=== PATIENT | female | born 1995 | race Hispanic/Latino ===

== ENCOUNTER 2018-02-27 14:04 | Emergency (ER) | payer OTHER ==
[2018-02-27] MEDS ORDERED: LIDOCAINE 1% W/EPI 1:100,000 MDV 50 ML VIAL ONE (14:56)
[2018-02-27] MEDS ORDERED: BUPIVACAINE 0.5% PF 10 ML VIAL ONE (14:56)
--- NOTE | 2018-02-27 16:09 | EDPHYS ---
Physician Documentation [facility] Name: Dav Munoz Age: 23 yrs Sex: Female : 1995 Arrival Date: 02/27/2018 Time: 14:07 Bed 27 Private MD: ED Physician Wolfgang Foster HPI: 02/27 14:20 This 23 yrs old Female presents to ER via Ambulatory with complaints of cp Abscess. 14:20 The patient presents with an abscess of the right groin. cp 14:20 Onset: The symptoms/episode began/occurred 2 day(s) ago. cp 14:20 Associated signs and symptoms: Pertinent negatives: discharge, drainage, fever. cp Severity of symptoms: in the emergency department the symptoms are unchanged. 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 - Social history:: Smoking status: Patient/guardian denies using tobacco, never smoked. ROS: 14:25 Constitutional: Negative for body aches, chills, fever, poor PO intake. cp 14:25 Eyes: Negative for injury, pain, redness, and discharge, ENT: Negative for injury, cp pain, and discharge. 14:25 Cardiovascular: Negative for chest pain, palpitations. 14:25 Respiratory: Negative for cough, shortness of breath, wheezing. 14:25 Abdomen/GI: Negative for abdominal pain, nausea, vomiting, and diarrhea. 14:25 : Negative for urinary symptoms, vaginal bleeding, vaginal discharge. 14:25 Skin: Positive for abscess, of the right groin. 14:25 All other systems are negative. Exam: 15:30 Head/Face: Normocephalic, atraumatic. cp 15:30 Constitutional: The patient appears in no acute distress, alert, awake, non-toxic, well developed, well nourished. 15:30 Eyes: Periorbital structures: appear normal, Conjunctiva: normal, no exudate, no injection, Lids and lashes: appear normal, bilaterally. 15:30 ENT: External ear(s): are unremarkable, Nose: is normal, Mouth: is normal, Posterior pharynx: is normal, airway is patent, no erythema, no exudate. 15:30 Chest/axilla: Inspection: normal. 15:30 Cardiovascular: Rate: normal, Rhythm: regular. 15:30 Respiratory: the patient does not display signs of respiratory distress, Respirations: normal. 15:30 Abdomen/GI: Inspection: gravid appearance, is noted, Bowel sounds: active, all quadrants, Palpation: abdomen is soft and non-tender, in all quadrants. 15:30 Skin: abscess, that is small, of the right groin, with minimal surrounding erythema. Vital Signs: 14:10 BP 110 / 76; Pulse 97; Resp 18; Temp 97.4(TE); Pulse Ox 100% on R/A; Weight 78.02 kg; hj Height 5 ft. 0 in. (152.40 cm); Pain 8/10; 15:23 BP 107 / 73; Pulse 72; Resp 18; Pulse Ox 100% ; tl3 16:03 BP 109 / 73; Pulse 67; Resp 18; Pulse Ox 100% on R/A; tl3 14:10 Body Mass Index 33.59 (78.02 kg, 152.40 cm) Procedures: 16:05 I \T\ D: Incision and drainage was performed for an abscess of the right groin Prepped cp with Betadine, Anesthetized with 3 ml's 1% Lidocaine w/ Epi. Incised with #11 blade. Drained small amount purulent fluid. Packed with iodoform gauze, Dressing: sterile 4x4 gauze, the patient tolerated the procedure well. MDM: 14:12 Patient medically screened. 16:00 Differential diagnosis: abscess, cellulitis, insect bite. 16:05 Data reviewed: vital signs, nurses notes. 16:07 Counseling: I had a detailed discussion with the patient and/or guardian regarding: the historical points, exam findings, and any diagnostic results supporting the discharge/admit diagnosis, to return to the emergency department if symptoms worsen or persist or if there are any questions or concerns that arise at home. 16:07 Response to treatment: the patient's symptoms have markedly improved after treatment, and as a result, I will discharge patient. 02/27 14:22 Order name: Wound Culture 02/27 14:22 Order name: I\T\D Setup; Complete Time: 14:32 cp 02/27 15:39 Order name: FHT's cp Administered Medications: No medications were administered Disposition: 02/28 10:25 Co-signature as Attending Physician, Wolfgang Foster MD I agree with the assessment and [facility] plan of care. Disposition: 02/27/18 16:08 Discharged to Home. Impression: Cutaneous abscess of groin - Right. - Condition is Stable. - Discharge Instructions: Abscess, Incision and Drainage. - Prescriptions for Clindamycin HCl 300 mg Oral Capsule - take 1 capsule by ORAL route every 6 hours for 7 days; 28 capsule. - Medication Reconciliation Form, Thank You Letter, Antibiotic Education, Prescription Opioid Use form. - Follow up: Private Physician; When: 48 Hours; Reason: Wound Recheck. - Problem is new. - Symptoms have improved. Signatures: Dispatcher [employer] Wolfgang Alva MD MD cha Joaquin, Henry, RN RN Wolfgang Bright PA PA cp Lowrey, Tammy, RN RN tl3 Corrections: (The following items were deleted from the chart) 02/27 21:02/26 14:25 Constitutional: Negative for body aches, chills, fever, poor PO intake, cp cp 02/27 21:02/26 14:25 Eyes: Negative for injury, pain, redness, and discharge, cp cp 02/27 21:02/26 14:25 Cardiovascular: Negative for chest pain, palpitations, cp cp 02/27 21:02/26 14:25 Respiratory: Negative for cough, shortness of breath, wheezing, cp cp 02/27 21:02/26 14:25 Abdomen/GI: Negative for abdominal pain, nausea, vomiting, and diarrhea, cp cp 02/27 21:02/26 14:25 : Negative for urinary symptoms, vaginal bleeding, vaginal discharge, cp cp 02/27 21:02/26 14:25 Skin: Positive for abscess, of the right groin, cp cp 02/27 21:02/26 14:25 All other systems are negative, cp cp
--- NOTE | 2018-02-27 16:09 | ER ---
Nurse's Notes [facility] Name: Dav Munoz Age: 23 yrs Sex: Female : 1995 Arrival Date: 02/27/2018 Time: 14:07 Bed 27 Private MD: Diagnosis: Cutaneous abscess of groin-Right Presentation: 02/27 14:08 Presenting complaint: Patient states: 2 days ago, i noticed a bump or abscess on my R hj inner thigh; its hard, denies fever and chills; LMP- 03/2017; 39 weeks ;. Transition of care: patient was not received from another setting of care. Onset of symptoms was February 27, 2018. Care prior to arrival: None. 14:08 Method Of Arrival: Ambulatory 14:08 Acuity: KYRA 4 hj Triage Assessment: 14:10 General: Appears in no apparent distress. uncomfortable, Behavior is calm, cooperative, hj appropriate for age. Pain: Complains of pain in right upper thigh Pain currently is 8 out of 10 on a pain scale. 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 - Social history:: Smoking status: Patient/guardian denies using tobacco, never smoked. Screenin:29 Abuse screen: Denies threats or abuse. Nutritional screening: No deficits noted. tl3 Tuberculosis screening: No symptoms or risk factors identified. Fall Risk None identified. Assessment: 14:29 General: Appears in no apparent distress. comfortable, well groomed, well developed, tl3 well nourished, Behavior is calm, cooperative, appropriate for age. Pain: Complains of pain in right upper thigh. Neuro: Level of Consciousness is awake, alert, obeys commands, Oriented to person, place, time, situation, Appropriate for age. Cardiovascular: No deficits noted. Heart tones S1 S2 present. Respiratory: No deficits noted. Airway is patent Trachea midline Respiratory effort is even, unlabored, Respiratory pattern is regular, symmetrical, Breath sounds are clear bilaterally. GI: No deficits noted. Abdomen is round. : No signs and/or symptoms were reported regarding the genitourinary system. EENT: No signs and/or symptoms were reported regarding the EENT system. Derm: No signs and/or symptoms reported regarding the dermatologic system. Musculoskeletal: No signs and/or symptoms reported regarding the musculoskeletal system. 15:23 Reassessment: Patient appears in no apparent distress at this time. No changes from tl3 previously documented assessment. Patient and/or family updated on plan of care and expected duration. Pain level reassessed. Patient is alert, oriented x 3, equal unlabored respirations, skin warm/dry/pink. pt requested more water and bed repositioned, Miki Bright at bedside discussing POC. 16:03 Reassessment: Patient appears in no apparent distress at this time. No changes from tl3 previously documented assessment. Patient and/or family updated on plan of care and expected duration. Pain level reassessed. Patient is alert, oriented x 3, equal unlabored respirations, skin warm/dry/pink. I\T\D complete, wound dressed. Vital Signs: 14:10 BP 110 / 76; Pulse 97; Resp 18; Temp 97.4(TE); Pulse Ox 100% on R/A; Weight 78.02 kg; hj Height 5 ft. 0 in. (152.40 cm); Pain 8/10; 15:23 BP 107 / 73; Pulse 72; Resp 18; Pulse Ox 100% ; tl3 16:03 BP 109 / 73; Pulse 67; Resp 18; Pulse Ox 100% on R/A; tl3 14:10 Body Mass Index 33.59 (78.02 kg, 152.40 cm) Vitals: 16:03 Heart Tones 146. tl3 ED Course: 14:07 Patient arrived in ED. rg4 14:09 Triage completed. hj 14:10 Arm band placed on left wrist. hj 14:12 Wolfgang Bright PA is PHCP. cp 14:12 Wolfgang Foster MD is Attending Physician. cp 14:21 Pascale Mai, UMAIR is Primary Nurse. tl3 14:29 Patient has correct armband on for positive identification. Placed in gown. Bed in low tl3 position. Call light in reach. Side rails up X 1. Door closed. Lights dimmed. Warm blanket given. PO fluids given. 14:29 Assist provider with I \T\ D: of an abscess on right upper thigh. tl3 14:37 No apparent distress. Awaiting ED provider evaluation. tl3 15:23 PO fluids given. Head of bed lowered. tl3 16:17 Patient did not have IV access during this emergency room visit. tl3 Administered Medications: No medications were administered Outcome: 16:05 Discharged to home tl3 16:05 Condition: good 16:05 Discharge instructions given to patient, Instructed on discharge instructions, follow up and referral plans. medication usage, Demonstrated understanding of instructions, follow-up care, medications, wound care, Prescriptions given X 1. 16:08 Discharge ordered by . mode 16:26 Patient left the ED. tl3 Addendum: 03/04/2018 07:46 Addendum: Culture Results: Positive wound culture. No further action required. i w Signatures: Lorraine Carolina, RN RN iw Bubba Haines RN RN Wolfgang Plascencia PA PA cp Garcia, Rubi rg4 Pascale Mai, RN RN tl3 Corrections: (The following items were deleted from the chart) 04 14:12 14:10 Pulse 97bpm; Resp 18bpm; Pulse Ox 100% RA; Temp 97.4F Temporal; 78.02 kg; Height hj 5 ft. 0 in.; BMI: 33.5; Pain 8/10; hj
== END 2018-02-27 16:26 | disposition home or self-care (01) ==
LOC: ER 14:04
PROC: 0J9C0ZZ Drainage of Pelvic Region Subcutaneous Tissue and Fascia, Open Approach (ICD-10-PCS; principal; 2018-02-27)
DX: L02.214 Cutaneous abscess of groin (principal); Z3A.00 Weeks of gestation of pregnancy not specified
CPT/HCPCS: 87070; 87077; 87186; 87205; 99283

== ENCOUNTER 2020-03-06 05:58 | Emergency (ER) | payer OTHER ==
--- OUTSIDE RECORDS SUMMARY | 2020-03-06 06:00 | XMS REPORT ---
:1995 Author Organization [facility] t Address [address] [place] [address] [address] [place] [address] Care Team Providers Name Role Phone Unavailable Unavailable Unavailable Problems This patient has no known problems. Allergies, Adverse Reactions, Alerts This patient has no known allergies or adverse reactions. Medications This patient has no known medications.
--- OUTSIDE RECORDS SUMMARY | 2020-03-06 06:01 | XMS REPORT | Summary of Care ---
:1995 Author Organization [facility] Address [address] [phone] Care Team Providers Name Role Phone Eva Hutton MD Primary Care Provider Unavailable Encounter Details Date Type Department Care Team Description 06/29/2019 Orders Only [facility] Doctor Unassigned, No [address] [facility] Name [address] [id number] [address] [place] [address] Allergies No Known Allergiesdocumented as of this encounter (statuses as of 07/03/2019) Medications Medication Sig Dispensed Refills Start Date End Date Status VIT Take 1 tablet by 0 Active CALC,IRON,FOLIC mouth. ( #2 ORAL) ferrous sulfate 325 mg Take 1 tablet by 60 tablet 5 02/11/2018 Active (65 mg iron) mouth 2 (two) tabletIndications: times daily with Anemia of mother in meals. , antepartum ibuprofen 800 mg Take 1 tablet by 20 tablet 0 08/22/2018 Active tablet mouth every 6 (six) hours as needed for Pain (scale 1-3) or Pain (scale 4-6). HYDROcodone-acetaminop Take 1 tablet by 5 tablet 0 08/22/2018 Active hen 5-325 mg tablet mouth every 6 (six) hours as needed for Pain (scale 7-10). documented as of this encounter (statuses as of 07/03/2019) Active Problems Problem Noted Date S/P laparoscopy 08/22/2018 Nexplanon removal 08/22/2018 control counseling 08/04/[address] 04/09/2018 Anemia of mother in , condition Normal labor 03/02/2018 Anemia complicating , third trimester 018 Nausea and vomiting 01/06/2018 Obesity 01/02/2016 documented as of this encounter (statuses as of 07/03/2019) Resolved Problems Problem Noted Date Resolved Date Liveborn infant, of [place] , born in hospital by 03/03/2018 04/01/2018 vaginal delivery 38 weeks gestation of 03/02/2018 04/01/20 18 Not immune to rubella 03/02/2018 04/01/2018 Meconium in amniotic fluid 03/02/2018 04/01/2018 High-risk , third trimester 02/19/201806/2018 Narciso Davis contractions 01/06/2018 04/01/2018 31 weeks gestation of 01/06/2018 03/02/20 18 Uterine size-date discrepancy in third trimester 12/27/2017 04/01/2018 29 weeks gestation of 12/21/2017 03/02/20 18 Vaginal discharge during in third trimester 201704/01/2018 Trichomonal vaginitis during in third trimester 04/01/2018 UTI in , antepartum, third trimester 12/21/2017 04/01/2018 Other general counseling and advice for contraceptive 201503/02/2018 management Well woman exam 01/02/2016 03/02/2018 Tobacco use disorder 01/02/2016 12/27/2017 documented as of this encounter (statuses as of 07/03/2019) Immunizations Name Administration Dates Next Due HPV 04/19/2008 Influenza Virus Vaccine Quad IM Multi-dose 6+ MO 12/27/2017 MMR 03/03/2018 Td 03/03/2018 Tdap 04/25/2014 documented as of this encounter Social History Tobacco Use Types Packs/Day Years Used Date Current Some Day Smoker Cigarettes 3 Quit : 01/20/2017 Smokeless Tobacco: Never Used Alcohol Use Drinks/Week oz/Week Comments No 0 Standard drinks or equivalent 0.0 Sex Assigned at Date Recorded Not on file Job Start Date Occupation Industry Not on file Not on file Not on file Travel History Travel Start Travel End No recent travel history available. documented as of this encounter Last Filed Vital Signs Not on filedocumented in this encounter Plan of Treatment Health Maintenance Due Date Last Done Comments PNEUMOCOCCAL 0-64 YEARS 2003 COMBINED SERIES (1 of 1 - PPSV23) MENINGOCOCCAL B VACCINES (1 2007 of 2 - Risk Bexsero 2-dose series) HPV VACCINES (2 - Female 10/20/2008 04/19/2008 2-dose series) CHLAMYDIA SCREENING 01/22/2019 01/22/2018, 12/21/2017, 04/19/2017, Additional history exists PAP SMEAR 04/01/2019 04/01/2018 INFLUENZA VACCINE 07/26/2019 12/27/2017 DTaP,Tdap,and Td Vaccines (3 03/03/2028 03/03/2018, 014 - Td) MENINGOCOCCAL VACCINE Aged Out No longer eligible based on patient 's age to complete this topic documented as of this encounter Procedures Procedure Name Priority Date/Time Associated Diagnosis Comme nts AUTHORIZATION FOR RELEASE Routine 06/29/2019 12:01 AM OF PHI CDT documented in this encounter Results Not on filedocumented in this encounter Insurance Payer Benefit Plan / Group Subscriber ID Effective Dates Phone Address Type AETNA AETNA O [id number] 2018-Present [place] documented as of this encounter
[2020-03-06] MEDS ORDERED: KETOROLAC 30 MG/ML INJ ONE (07:18)
--- NOTE | 2020-03-06 07:25 | RAD REPORT ---
EXAM DESCRIPTION: CT - [facility] Protocol - 03/06/2020 7:00 am CLINICAL HISTORY: Abdominal pain. COMPARISON: None. TECHNIQUE: Computed axial tomography of the abdomen pelvis was obtained without oral or IV contrast. Lack of IV and oral contrast limits evaluation of solid organs, bowel, and vessels. Coronal reformat chris images were obtained and reviewed. All CT scans are performed using dose optimization technique as appropriate and may include automated exposure control or mA/KV adjustment according to patient size. FINDINGS: A renal calculus is not seen. An ureteral calculus is not noted. A bladder calculus is not present. The liver, spleen, pancreas and adrenals appear grossly normal There is no evidence of diverticulitis. The appendix appears normal IUD in place. Small amount of free fluid. No adnexal mass seen. IMPRESSION: Negative for a genitourinary calculus Small amount of free fluid within the pelvis
--- NOTE | 2020-03-06 07:36 | ER ---
Nurse's Notes [facility] Name: Dav Munoz Age: 25 yrs Sex: Female : 1995 Arrival Date: 03/06/2020 Time: 06:02 Bed 7 Private MD: Diagnosis: Abdominal and pelvic pain Presentation: 03/06 06:00 Chief complaint: Patient states: low pelvic pain for a couple days, worse this morning; lp1 States having Mirena inserted by [employer] a couple weeks ago; Denies any fever, N/D, vaginal discharge. 06:00 Coronavirus screen: Proceed with normal triage. Ebola Screen: No symptoms or risks lp1 identified at this time. Initial Sepsis Screen: Does the patient meet any 2 criteria? No. Patient's initial sepsis screen is negative. Does the patient have a suspected source of infection? No. Patient's initial sepsis screen is negative. Risk Assessment: Do you want to hurt yourself or someone else? Patient reports no desire to harm self or others. Onset of symptoms was March 06, 2020. 06:00 Method Of Arrival: Ambulatory lp1 06:00 Acuity: KYRA 3 lp1 06:24 Coronavirus screen: Proceed with normal triage. Ebola Screen: No symptoms or risks ea identified at this time. 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 - Social history:: Smoking status: Patient denies any tobacco usage or history of. Screenin:24 Abuse screen: Denies threats or abuse. Nutritional screening: No deficits noted. ea Tuberculosis screening: No symptoms or risk factors identified. Fall Risk None identified. Assessment: 06:22 General: Appears in no apparent distress. Behavior is calm, cooperative, appropriate ea for age. Pain: Complains of pain in abdomen. Neuro: Level of Consciousness is awake, alert, obeys commands, Oriented to person, place, time. Cardiovascular: Patient's skin is warm and dry. Respiratory: Airway is patent Respiratory effort is even, unlabored, Respiratory pattern is regular, symmetrical. 07:18 Reassessment: Patient appears in no apparent distress at this time. Patient and/or em family updated on plan of care and expected duration. Pain level reassessed. Patient is alert, oriented x 3, equal unlabored respirations, skin warm/dry/pink. rates pain 6/10. Vital Signs: 06:00 BP 110 / 62; Pulse 74; Resp 16; Temp 98.2(O); Pulse Ox 97% on R/A; Weight 77.11 kg (R); lp1 Height 5 ft. 0 in. (152.40 cm); Pain 5/10; 07:19 BP 115 / 69; Pulse 79; Resp 18; Pulse Ox 100% on R/A; Pain 9/10; em 06:00 Body Mass Index 33.20 (77.11 kg, 152.40 cm) lp1 ED Course: 06:02 Patient arrived in ED. ag3 06:03 [facility]zma Sun [facility]C [facility] kb 06:03 Wolfgang Foster MD is Attending Physician. kb 06:22 Melany Julian, RN is Primary Nurse. ea 06:25 Triage completed. lp1 06:25 Arm band placed on. lp1 06:25 Patient has correct armband on for positive identification. Bed in low position. Call ea light in reach. 07:00 CT [facility] Protocol In Process Unspecified. EDMS 07:46 No provider procedures requiring assistance completed. Patient did not have IV access em during this emergency room visit. Administered Medications: 07:17 Drug: TORadol 30 mg Route: IM; Site: right deltoid; em 07:46 Follow up: Response: No adverse reaction; Marked relief of symptoms; Pain is decreased em Outcome: 07:35 Discharge ordered by . kb 07:46 Discharged to home ambulatory. em 07:46 Condition: good 07:46 Discharge instructions given to patient, Instructed on discharge instructions, follow up and referral plans. medication usage, safe sex practices, Demonstrated understanding of instructions, follow-up care, medications, Prescriptions given X 1. 07:46 Patient left the ED. em Signatures: Dispatcher [employer] EDMT Uzma Sun FNP-C FNP-Ckb Munoz, Edgar, RN RN em Pena, Laura, RN RN [facility] Melany Julian, RN RN ea Moffett, Kaitlin ag3
--- NOTE | 2020-03-06 07:36 | EDPHYS ---
Physician Documentation [facility] Name: Dav Munoz Age: 25 yrs Sex: Female : 1995 Arrival Date: 03/06/2020 Time: 06:02 Bed 7 Private MD: ED Physician Wolfgang Foster HPI: 03/06 06:24 This 25 yrs old Female presents to ER via Ambulatory with complaints of kb Abdominal Pain. 06:24 The patient presents with abdominal pain in the lower abdomen. Onset: The kb symptoms/episode began/occurred 2 week(s) ago. The symptoms do not radiate. Associated signs and symptoms: none. The symptoms are described as crampy. Modifying factors: The symptoms are alleviated by nothing, the symptoms are aggravated by nothing. Severity of pain: At its worst the pain was moderate in the emergency department the pain is unchanged. The patient has not experienced similar symptoms in the past. The patient has been recently seen by a physician:. Pt reports pelvic pain since having the mirena placed 2 weeks ago. States she pain was "normal" at first, but continued and has gotten worse. Reports it feels like pressure. . 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 - Social history:: Smoking status: Patient denies any tobacco usage or history of. ROS: 06:23 Constitutional: Negative for fever, chills, and weight loss, ENT: Negative for injury, kb pain, and discharge, Neck: Negative for injury, pain, and swelling, Cardiovascular: Negative for chest pain, palpitations, and edema, Respiratory: Negative for shortness of breath, cough, wheezing, and pleuritic chest pain, Back: Negative for injury and pain, MS/Extremity: Negative for injury and deformity, Skin: Negative for injury, rash, and discoloration, Neuro: Negative for headache, weakness, numbness, tingling, and seizure. 06:23 Abdomen/GI: Positive for abdominal pain, Negative for nausea, vomiting, and diarrhea, constipation. Exam: 06:23 Constitutional: This is a well developed, well nourished patient who is awake, alert, kb and in no acute distress. Head/Face: Normocephalic, atraumatic. Neck: Trachea midline, no thyromegaly or masses palpated, and no cervical lymphadenopathy. Supple, full range of motion without nuchal rigidity, or vertebral point tenderness. No Meningismus. Chest/axilla: Normal chest wall appearance and motion. Nontender with no deformity. No lesions are appreciated. Cardiovascular: Regular rate and rhythm with a normal S1 and S2. No gallops, murmurs, or rubs. Normal PMI, no JVD. No pulse deficits. Respiratory: Lungs have equal breath sounds bilaterally, clear to auscultation and percussion. No rales, rhonchi or wheezes noted. No increased work of breathing, no retractions or nasal flaring. Skin: Warm, dry with normal turgor. Normal color with no rashes, no lesions, and no evidence of cellulitis. MS/ Extremity: Pulses equal, no cyanosis. Neurovascular intact. Full, normal range of motion. Neuro: Awake and alert, GCS 15, oriented to person, place, time, and situation. Cranial nerves II-XII grossly intact. Motor strength 5/5 in all extremities. Sensory grossly intact. Cerebellar exam normal. Normal gait. 06:23 Abdomen/GI: Inspection: abdomen appears normal, Bowel sounds: normal, in all quadrants, Palpation: soft, in all quadrants, mild abdominal tenderness, in the right lower quadrant and left lower quadrant, moderate abdominal tenderness, in the suprapubic area. Vital Signs: 06:00 BP 110 / 62; Pulse 74; Resp 16; Temp 98.2(O); Pulse Ox 97% on R/A; Weight 77.11 kg (R); lp1 Height 5 ft. 0 in. (152.40 cm); Pain 5/10; 07:19 BP 115 / 69; Pulse 79; Resp 18; Pulse Ox 100% on R/A; Pain 9/10; em 06:00 Body Mass Index 33.20 (77.11 kg, 152.40 cm) lp1 MDM: 06:03 Patient medically screened. kb 06:22 Data reviewed: vital signs, nurses notes. Data interpreted: Pulse oximetry: on room air kb is 100 %. Interpretation: normal. 07:34 Counseling: I had a detailed discussion with the patient and/or guardian regarding: the kb historical points, exam findings, and any diagnostic results supporting the discharge/admit diagnosis, lab results, radiology results, the need for outpatient follow up, an OB/Gyne specialist, to return to the emergency department if symptoms worsen or persist or if there are any questions or concerns that arise at home. ED course: Pt will follow up with Dr Arambula this week.. 03/06 06:19 Order name: Urine Dipstick--Ancillary (enter results) 2 03/06 06:19 Order name: Urine --Ancillary (enter results) 2 03/06 06:09 Order name: Urine Dipstick-Ancillary (obtain specimen); Complete Time: 06:19 kb 03/06 06:09 Order name: CT Stone Protocol; Complete Time: 07:31 kb Administered Medications: 07:17 Drug: TORadol 30 mg Route: IM; Site: right deltoid; em 07:46 Follow up: Response: No adverse reaction; Marked relief of symptoms; Pain is decreased em Disposition: 03/07 07:37 Co-signature as Attending Physician, Wolfgang Foster MD I agree with the assessment and darrin plan of care. Disposition: 03/06/20 07:35 Discharged to Home. Impression: Abdominal and pelvic pain. - Condition is Stable. - Discharge Instructions: Pelvic Pain, Female, [id number], Abdominal Pain, Adult, [id number]. - Prescriptions for Diclofenac Sodium 75 mg Oral Tablet, Delayed Release (E.C.) - take 1 tablet by ORAL route 2 times per day As needed; 30 tablet. - Medication Reconciliation Form, Thank You Letter, Antibiotic Education, Prescription Opioid Use form. - Follow up: Emergency Department; When: As needed; Reason: Worsening of condition. Follow up: Private Physician; When: 2 - 3 days; Reason: Recheck today's complaints, Continuance of care, Re-evaluation by your physician. Signatures: Dispatcher [employer] Uzma Gonzalez, CYBER INTELLIGENCE ANALYST-C Wolfgang Quintero MD MD cha Munoz, Edgar, RN RN em Gena Vaz RN RN lp1 Corrections: (The following items were deleted from the chart) 03/06 07:46 07:35 03/06/2020 07:35 Discharged to Home. Impression: Abdominal and pelvic pain. em Condition is Stable. Forms are Medication Reconciliation Form, Thank You Letter, Antibiotic Education, Prescription Opioid Use. Follow up: Emergency Department; When: As needed; Reason: Worsening of condition. Follow up: Private Physician; When: 2 - 3 days; Reason: Recheck today's complaints, Continuance of care, Re-evaluation by your physician. kb
[2020-03-06 07:55] VITALS: TEMP 98.2
[2020-03-06 07:56] VITALS: BP 115/69; O2SAT 100
[2020-03-06 08:46] LABS: Urine Blood NEGATIVE (NEG); Urine Glucose NEGATIVE (NEG); Urine Protein NEGATIVE (NEG); Urine Specific Gravity >1.030 (1.005-1.030)
== END 2020-03-06 07:46 | disposition home or self-care (01) ==
LOC: ER 05:58
DX: R10.31 Right lower quadrant pain (principal); R10.32 Left lower quadrant pain; R10.2 Pelvic and perineal pain
CPT/HCPCS: 74176; 76377; 81003; 81025; 96372; 99283

== ENCOUNTER 2021-06-19 07:12 | Emergency (ER) | payer SELFPAY ==
--- OUTSIDE RECORDS SUMMARY | 2021-06-19 07:15 | XMS REPORT | Continuity of Care Document ---
:1995 Author Organization [facility] t Address [address] [place] [address] Care Team Providers Name Role Phone Doctor Unassigned, Name Attending Clinician Unavailable Problems This patient has no known problems. Allergies, Adverse Reactions, Alerts This patient has no known allergies or adverse reactions. Medications This patient has no known medications. Procedures This patient has no known procedures. Encounters Start End Encounter Admission Attending Care Care Encounter Source Date/Time Date/Time Type Type Clinicians Facility Department ID 2019-06-29 2019-06-29 Orders Doctor ALMAGUER [id number] 00:00:00 00:00:00 Only UnassignedLORNA [id number] Eitzen [facility] [id number] Results This patient has no known results.
[2021-06-19] MEDS ORDERED: IBUPROFEN 400 MG TAB ONE (09:11)
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
[2021-06-21 04:53] VITALS: TEMP 97.6
[2021-06-21 04:55] VITALS: BP 134/98; O2SAT 100
== END 2021-06-19 08:51 | disposition home or self-care (01) ==
LOC: ER 07:12 → EEVIPCON 07:12 → ER 08:51
DX: S09.90XA Unspecified injury of head, initial encounter (principal); S20.229A Contusion of unspecified back wall of thorax, initial encounter; Y04.8XXA Assault by other bodily force, initial encounter; Y92.009 Unspecified place in unspecified non-institutional (private) residence as the place of occurrence of the external cause

== ENCOUNTER 2025-01-25 01:08 | Emergency (ER) | payer OTHER, SELFPAY ==
--- OUTSIDE RECORDS SUMMARY | 2025-01-25 01:16 | XMS REPORT | Continuity of Care Document ---
Author Name Unknown Address [address] [place] [address] [facility] [address] [place] [address] Care Team Providers Care Grants Director Name Role Phone Carli Nico Primary Care Physician Bruce Read Attending Clinician Unavailable DAVID CASTANEDA Attending Clinician Unavailable More Galo Attending Clinician UnavailNEREYDA Miner Attending Clinician UnavailTREY Castro Attending Clinician Unavailable FERNANDO CLAROS Attending Clinician Unavailab SAMY Solomon Attending Clinician Unavailab SHAQUILLE Oconnell Attending Clinician Unavailable CARINA DRUMMOND-SON Attending Clinician Unavailable NT90 Attending Clinician Unavailable RONY FIGUEREDO Attending Clinician Unavailable MITCH AGUILAR Attending Clinician Unavailable BÁRBARA CORONA Attending Clinician Unavailable CHRIS FONTENOT Attending Clinician Unavailable DIPIKA ALMAGUER Attending Clinician Unavailable LYDIA ESTRADA Attending Clinician Unavailable SANDRINE FRANKLIN Attending Clinician Unavailable LAB45 Attending Clinician Unavailable LAB90 Attending Clinician Unavailable JARRELL RAMOS Attending Clinician Unavailable [email or web address] Attending Clinician UnavailLISSETT Rizzo Attending Clinician Ayse vailable Pob, [facility] Main Attending Clinician UnavailAlma Stevens MD Attending Clinician [phone] ALMA DUENAS Attending Clinician Unavailsebastián e Doctor Unassigned, Rake Attending Clinician U navailable RADIOLOGY Attending Clinician Unavailable SUE SORTO Attending Clinician Un available [email or web address] Admitting Clinician Unavaila emerita Payers Payer Name Policy Type Policy Number Effective Date Expirati on Date Source 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 [id number] 2024 00:00:00 [employer] GENERIC [id number] 2023 00:00:00 [place] [address] [id number] [place] [address] [id number] 2021 00:00:00 [facility] [id number] [facility] Problems Condition Name Condition Details Condition Category Status Onset Date Resolution Date Last Treatment Date Treating Clinician Comments Source S/P laparoscop y S/P laparoscop y Disease Active 08-22 00:00: 00 [facility] Nexplanon removal Nexplanon removal Disease Active 08-22 00:00: 00 [facility] Nexplanon removal Nexplanon removal Disease Active 08-22 00:00: 00 [facility] control counseling control counseling Disease Active 08-04 00:00: 00 [facility] control counseling control counseling Disease Active 08-04 00:00: 00 [facility] Nexplanon in place Nexplanon in place Disease Active 04-09 00:00: 00 [facility] Anemia of mother in , condition Anemia of mother in , condition Disease Active 04-01 00:00: 00 [facility] Anemia of mother in , condition Anemia of mother in , condition Disease Active 04-01 00:00: 00 [facility] Normal labor Normal labor Disease Active 03-02 00:00: 00 [facility] Anemia complicati ng , third trimester Anemia complicati ng , third trimester Disease Active 02-19 00:00: 00 [facility] Nausea and vomiting Nausea and vomiting Disease Active 01-06 00:00: 00 [facility] Obesity Obesity Disease Active 01-02 00:00: 00 [facility] [id number] Attention deficit hyperactiv ity disorder (ADHD), combined type Problem [facility] [id number] Smoker Problem [facility] Allergic rhinitis Allergic rhinitis, unspecifie d seasonalit y, unspecifie d trigger Problem [facility] [id number] Low HDL (under 40) Problem [facility] [id number] Atypical squamous cells of undetermin ed significan ce on cytologic smear of cervix (ASC-US) Problem [facility] [id number] Cervical high risk human papillomav irus (HPV) DNA test positive Problem [facility] [id number] Medical history non-contri butory Problem [facility] [id number] Menorrhagi a with regular cycle Problem [facility] [id number] Unable to concentrat e Problem [facility] Liveborn infant, of hollins , born in hospital by vaginal delivery Liveborn , of hollins , born in hospital by vaginal delivery Disease Resolve d 03-03 00:00: 00 2018-04-01 00:00:00 2018-04-01 09:27:38 [facility] 38 weeks gestation of 38 weeks gestation of Disease Resolve d 03-02 00:00: 00 2018-04-01 00:00:00 2018-04-01 09:27:38 [facility] Not immune to rubella Not immune to rubella Disease Resolve d 2017-0 4-08 00:00: 00 2018-04-01 00:00:00 2018-04-01 09:27:38 [facility] Meconium in amniotic fluid Meconium in amniotic fluid Disease Resolve d 2017-0 4-08 00:00: 00 2018-04-01 00:00:00 2018-04-01 09:27:38 [facility] High-risk , third trimester High-risk , third trimester Disease Resolve d 2017-0 3-28 00:00: 00 2018-04-01 00:00:00 2018-04-01 12:29:39 [facility] Hemphill Davis contractio ns Hemphill Davis contractio ns Disease Resolve d 2017-0 2-12 00:00: 00 2018-04-01 00:00:00 2018-04-01 12:29:27 [facility] Uterine size-date discrepanc y in third trimester Uterine size-date discrepanc y in third trimester Disease Resolve d 2017-0 2-02 00:00: 00 2018-04-01 00:00:00 2018-04-01 12:29:23 [facility] Vaginal discharge during in third trimester Vaginal discharge during in third trimester Disease Resolve d 2017-0 1-27 00:00: 00 2018-04-01 00:00:00 2018-04-01 09:27:38 [facility] Trichomona l vaginitis during in third trimester Trichomona l vaginitis during in third trimester Disease Resolve d 2017-0 1-27 00:00: 00 2018-04-01 00:00:00 2018-04-01 09:27:38 [facility] UTI in , antepartum , third trimester UTI in , antepartum , third trimester Disease Resolve d 2017-0 1-27 00:00: 00 2018-04-01 00:00:00 2018-04-01 09:27:38 [facility] 31 weeks gestation of 31 weeks gestation of Disease Resolve d 2017-0 2-12 00:00: 00 2018-03-02 00:00:00 2018-03-02 12:13:54 [facility] 29 weeks gestation of 29 weeks gestation of Disease Resolve d 1-27 00:00: 00 2018-03-02 00:00:00 2018-03-02 12:13:43 [facility] Well woman exam Well woman exam Disease Resolve d 01-02 00:00: 00 2018-03-02 00:00:00 2018-03-02 12:13:37 [facility] Tobacco use disorder Tobacco use disorder Disease Resolve d 01-02 00:00: 00 2017-12-27 00:00:00 2017-12-27 10:57:29 [facility] Allergies, Adverse Reactions, Alerts Allergy Name Allergy Type Status Severity Reaction(s) Onset Date Inactive Date Treating Clinician Comments Source NO KNOWN ALLERGIE S Drug Class Active [facility] Social History Social Habit Start Date Stop Date Quantity Comments Source [facility] of [facility] ASSERTION Not Korin Maria - External Sex 2024-07-15 14:59:43 2024-07-15 14:59:43 Male (finding) Korin Maria - External Alcohol intake 2024-01-01 00:00:00 2024-01-01 00:00:00 Lifetime non-drinker (finding) Korin Maria - External History of Social function 2019-06-04 00:00:00 2019-06-04 00:00:00 [facility] Alcoholic beverage intake 2018-04-09 00:00:00 2018-04-09 00:00:00 0 /d [facility] Tobacco use and exposure 2017-04-19 00:00:00 2017-04-19 00:00:00 Smokeless tobacco non-user [facility] Sex assigned at 1995 00:00:00 1995 00:00:00 Korin Olmedo External Smoking Status Start Date Stop Date Source Never smoked tobacco Korin Olmedo External Occasional tobacco smoker 2018-08-19 00:00:00 [facility] Ex-smoker 2017-04-19 00:00:00 2017-04-19 00:00:00 [facility] Medications Ordered Medication Name Filled Medication Name Start Date Stop Date Current Medication? Ordering Clinician Indication Dosage Frequency Signature (SIG) Comments Components Source Pseudoeph-B romphen-DM 30-2-10 MG/5ML oral Syrup 12-24 00:00: 00 Yes [id number] 10mL Q.25D Take 10 mL by mouth 4 times daily as needed. Korin abdi Lidocaine HCl (Lidocaine Viscous HCl) 2 % mouth/throa t Solution 12-24 00:00: 00 Yes [id number] Gargle and spit 15ml q3 prn pain. Korin abdi hydrOXYzine HCl 10 MG oral Tablet 12-07 00:00: 00 Yes [id number] 10mg Q.[id number] 3D Take 1 tablet (10 mg total) by mouth 3 times daily as needed for itching. Korin abdi Escitalopra m Oxalate (Lexapro) 10 MG oral Tablet 12-07 00:00: 00 Yes [id number] 10mg QD Take 1 tablet (10 mg total) by mouth daily. Korin abdi Pseudoeph-B romphen-DM 30-2-10 MG/5ML oral Syrup 2023-11 00:00: 00 12-07 00:00 :00 No 10mL Q.25D Take 10 mL by mouth 4 times daily as needed. Korin abdi Oseltamivir Phosphate (Tamiflu) 75 MG oral Capsule 2023-11 00:00: 00 12-07 00:00 :00 No [id number] 75mg QD Take 1 capsule (75 mg total) by mouth daily. Korin abdi Lisdexamfet amine Dimesylate (Vyvanse) 30 MG oral Capsule 07-04 11:57: 02 07-04 00:00 :00 No 30mg Take 1 capsule (30 mg total) by mouth every morning. Korin abdi OFLOXACIN, OPHTH, 0.3 % ophthalmic Solution 07-04 00:00: 00 07-12 04:59 :00 No [id number] 1[drp] Q.25D Apply 1 drop to eye 4 times daily for 7 days. Korin abdi Pseudoeph-Zaira romphen-DM 30-2-10 MG/5ML oral Syrup 05-21 00:00: 00 07-04 00:00 :00 No [id number] 10mL Q.25D Take 10 mL by mouth 4 times daily as needed. Korin abdi methylPREDN ISolone 4 MG oral Tablet Therapy Pack 05-21 00:00: 07-04 00:00 :00 No [id number] 1{rivera} Take 1 rivera by mouth See Admin Instructio ns Use as directed. Korin abdi Meclizine HCl 25 MG oral Tablet 05-21 00:00: 00 07-04 00:00 :00 No [id number] 25mg Q.[id number] 3D Take 1 tablet (25 mg total) by mouth 3 times daily as needed. Korin abdi Lisdexamfet amine Dimesylate (Vyvanse) 30 MG oral Capsule 04-28 17:05: 21 Yes 30mg Take 1 capsule (30 mg total) by mouth every morning. Korin abdi Lisdexamfet amine Dimesylate (Vyvanse) 30 MG oral Capsule 04-28 16:43: 07 Yes 30mg Take 1 capsule (30 mg total) by mouth every morning. Korin abdi FLUTICASONE PROPIONATE, NASAL, 50 MCG/ACT nasal Suspension 04-28 00:00: 00 07-04 00:00 :00 No [id number] 50ug QD Use 1 spray (50 mcg total) in each nostril daily. Korin abdi Pseudoeph-B romphen-DM 30-2-10 MG/5ML oral Syrup 04-28 00:00: 00 05-21 00:00 :00 No [id number] 10mL Q.25D Take 10 mL by mouth 4 times daily as needed. Korin abdi Amoxicillin (AMOXIL) 500 MG oral Capsule 5-03 00:00: 00 07-04 00:00 :00 No [id number] 500mg Q.[id number] 3D Take 1 capsule (500 mg total) by mouth 3 times daily. Korin abdi Nitrofurant oin Monohyd Macro 100 MG oral Capsule 4-29 00:00: 00 07-04 00:00 :00 No [id number] 100mg Q.5D Take 1 capsule (100 mg total) by mouth 2 times daily. Korin abdi Orphenadrin e Citrate CR 100 MG oral Tablet 12 Hour Sustained Release 01-26 00:00: 00 07-04 00:00 :00 No 100mg Q.5D Take 1 tablet (100 mg total) by mouth 2 times daily as needed for muscle spasms. Korin abdi Tramadol HCl (ULTRAM) 50 MG oral Tablet 01-26 00:00: 00 07-04 00:00 :00 No 50mg Q.25D Take 1 tablet (50 mg total) by mouth every 6 hours as needed FOR PAIN. Korin abdi Pseudoeph-B romphen-DM 30-2-10 MG/5ML oral Syrup 01-23 00:00: 00 Yes [id number] 10mL Take 10 mL by mouth 4 times daily. Korin abdi Lidocaine HCl (Lidocaine Viscous HCl) 2 % mouth/throa t Solution 01-23 00:00: 00 07-04 00:00 :00 No [id number] 15 mL swished in the mouth and spit out or swallow every 3 hours (maximum: 4.5 mg/kg [or 300 mg per dose]; 8 doses per 24-hour period). Korin abdi FLUTICASONE PROPIONATE, NASAL, (Flonase) 50 MCG/ACT nasal Suspension 01-23 00:00: 00 04-28 00:00 :00 No [id number] 50ug QD Use 1 spray (50 mcg total) in each nostril daily as needed for rhinitis. Korin abdi Promethazin e-DM 6.25-15 MG/5ML oral Syrup 01-23 00:00: 00 03-23 00:00 :00 No 5mL Q.25D Take 5 mL by mouth 4 times daily as needed for cough. Korin abdi Docusate Sodium 100 MG oral Tablet 01-10 00:00: 00 07-04 00:00 :00 No [id number] 100mg Q.5D Take 100 mg by mouth 2 times daily. Korin abdi Hydrocortis one, Perianal, 2.5 % apply externally Cream 01-10 00:00: 00 02-09 04:59 :00 No [id number] 1{appli cation} Apply 1 Applicatio n rectally 2 times daily. Korin abdi ACETAMINOPH EN-CAFF-BUT ALBITAL 50-325-40 MG oral Tablet 01-01 00:00: 00 07-04 00:00 :00 No [id number] 1{tbl} Q4H Take 1 tablet by mouth every 4 hours as needed for pain. Korin abdi TAKE 1 TABLET DAILY DIRECTED. 08-09 00:00: 00 12-25 00:00 :00 No 2535 Werner Garcia TAKE 1 TABLET BID 07-31 00:00: 00 12-25 00:00 :00 No 500 Werner F Jose TAKE 1 TABLET DAILY. 07-02 00:00: 00 12-25 00:00 :00 No 10 Werner F Jose TAKE 2 TABLETS ON DAY 1 THEN TAKE 1 TABLET A DAY FOR 4 DAYS. 07-02 00:00: 00 12-25 00:00 :00 No 250 Werner Garcia TAKE 1 TABLET DAILY. 02-13 00:00: 00 12-25 00:00 :00 No 10 Werner Colleen Jose APPLY 1/2 INCH RIBBON INTO AFFECTED EYE(S) AT BEDTIME. 1-24 00:00: 00 12-25 00:00 :00 No 500 Werner F Jose Dose Unknown 2021-11 2- 00:00: 00 No TAKE 1 TABLET BY MOUTH AT BEDTIME 2021-11 2- 00:00: 00 No VYVANSE 30 MG CAPS 2021-11 2 00:00: 00 No TAKE 1 CAPSULE 3 TIMES DAILY NEEDED. 2021-11 2- 00:00: 00 No METHOCARBAM OL 750 MG TABS 2021-11 2- 00:00: 00 No Dose Unknown 2021-11 2 00:00: 00 No AZITHROMYCI N 250 MG TABS 2021-11 2 00:00: 00 No Dose Unknown 2021-11 2 00:00: 00 No Dose Unknown 2021-11 2 00:00: 00 No USE 2 SPRAYS IN EACH NOSTRIL ONCE DAILY 2021-11 2 00:00: 00 No Dose Unknown 2021-11 2 00:00: 00 No TAKE 1 TABLET 3 TIMES DAILY WITH FOOD NEEDED. 2021-11 2 00:00: 00 No Dose Unknown 2021-11 2 00:00: 00 No Dose Unknown 2021-11 2 00:00: 00 No Dose Unknown 2021-11 2 00:00: 00 No AZITHROMYCI N 250 MG TABS 2021-11 2 00:00: 00 12-25 00:00 :00 No Werner F Jose Dose Unknown 2021-11 2 00:00: 00 12-25 00:00 :00 No Werner F Jose Dose Unknown 2021-11 2 00:00: 00 12-25 00:00 :00 No Werner F Jose TAKE 1 CAPSULE BY MOUTH EVERY DAY IN THE MORNING FOR 30 DAYS 2021-11 2 00:00: 00 12-25 00:00 :00 No Werner F Jose Dose Unknown 2021-11 2 00:00: 00 12-25 00:00 :00 No Werner F Jose Dose Unknown 2021-11 2 00:00: 00 12-25 00:00 :00 No Werner F Jose TAKE 1 CAPSULE 3 TIMES DAILY NEEDED. 2021-11 2- 00:00: 00 12-25 00:00 :00 No Werner Garcia USE 2 SPRAYS IN EACH NOSTRIL ONCE DAILY 2021-11 2 00:00: 00 12-25 00:00 :00 No Werner Garcia TAKE 1 CAPSULE TWICE DAILY WITH FOOD. 2021-11 2 00:00: 00 12-25 00:00 :00 No Werner Garcia TAKE 1 TABLET 3 TIMES DAILY WITH FOOD NEEDED. 2021-11 2 00:00: 00 12-25 00:00 :00 No Werner Garcia Dose Unknown 2021-11 00:00: 00 12-25 00:00 :00 No Werner Garcia Dose Unknown 2021-11 00:00: 00 12-25 00:00 :00 No Werner Garcia Dose Unknown 2021-11 00:00: 00 12-25 00:00 :00 No Werner Garcia METHOCARBAM OL 750 MG TABS 2021-11 2 00:00: 00 12-25 00:00 :00 No Werner Garcia Dose Unknown 2021-11 00:00: 00 12-25 00:00 :00 No Werner Garcia Amphetamine -Dextroamph et ER 10 MG Amphetamine -Dextroamph et ER 10 MG 8-15 00:00: 00 No 1{capsu le_in_t he_morn ing} QD Amphetamin e-Dextroam phet ER 10 MG Amphetamine -Dextroamph et ER 10 MG Amphetamine -Dextroamph et ER 10 MG 8-15 00:00: 00 No 1{capsu le_in_t he_morn ing} QD Amphetamin e-Dextroam phet ER 10 MG Amphetamine -Dextroamph et ER 10 MG Amphetamine -Dextroamph et ER 10 MG 8-15 00:00: 00 No 1{capsu le_in_t he_morn ing} QD Amphetamin e-Dextroam phet ER 10 MG Amphetamine -Dextroamph et ER 10 MG Amphetamine -Dextroamph et ER 10 MG 0 8-15 00:00: 00 No 1{capsu le_in_t he_morn ing} QD Amphetamin e-Dextroam phet ER 10 MG Amphetamine -Dextroamph et ER 10 MG Amphetamine -Dextroamph et ER 10 MG 0 8-15 00:00: 00 No 1{capsu le_in_t he_morn ing} QD Amphetamin e-Dextroam phet ER 10 MG Amphetamine -Dextroamph et ER 10 MG Amphetamine -Dextroamph et ER 10 MG 0 8-15 00:00: 00 No 1{capsu le_in_t he_morn ing} QD Amphetamin e-Dextroam phet ER 10 MG ACETAMINOPH EN/CODEINE PHOSPHATE 300-60 MG TABS 8-09 00:00: 00 Yes Werner Garcia TAKE 1 TABLET BY MOUTH EVERY 12 HOURS 0 8-09 00:00: 00 Yes Werner Colleen Jose &lt 0 8-09 00:00: 00 No TAKE 1 TABLET BY MOUTH EVERY 12 HOURS 0 8-09 00:00: 00 No 20 &lt 0 8-09 00:00: 00 No TAKE 1 TABLET BY MOUTH EVERY 12 HOURS 0 8-09 00:00: 00 No 20 Dose Unknown 0 8-09 00:00: 00 No Dose Unknown 0 8-09 00:00: 00 No Vyvanse 30 MG Vyvanse 30 MG 8- 00:00: 00 No 1{capsu le_in_t he_morn ing} QD Vyvanse 30 MG Dose Unknown 7- 00:00: 00 Yes Werner Macias Jose Dose Unknown 0 7- 00:00: 00 Yes Werner Colleen Jose TAKE 10 ML BY MOUTH EVERY 8 HOURS 0 7- 00:00: 00 Yes Werner Colleen Jose &lt 0 7- 00:00: 00 No 10 TAKE 1 CAPSULE BY MOUTH THREE TIMES A DAY FOR 10 DAYS 0 7-22 00:00: 00 No 200 TAKE 10 ML BY MOUTH EVERY 8 HOURS 0 7- 00:00: 00 No &lt 0 06-15 00:00: 00 No 10 TAKE 1 CAPSULE BY MOUTH THREE TIMES A DAY FOR 10 DAYS 0 06-15 00:00: 00 No 200 TAKE 10 ML BY MOUTH EVERY 8 HOURS 0 06-15 00:00: 00 No Dose Unknown 0 06-15 00:00: 00 No Dose Unknown 0 06-15 00:00: 00 No TAKE 10 ML BY MOUTH EVERY 8 HOURS 0 06-15 00:00: 00 No Dose Unknown 0 06-14 00:00: 00 Yes Werner Garcia Dose Unknown 06-14 00:00: 00 Yes Werner Garcia TAKE 2 TABLETS BY MOUTH TODAY, THEN TAKE 1 TABLET DAILY FOR 4 DAYS 06-14 00:00: 00 Yes 250 Werner Garcia &lt 0 06-14 00:00: 00 Yes 10 Werner Garcia TAKE 1 TABLET BY MOUTH EVERY 12 HOURS FOR 14 DAYS 06-14 00:00: 00 Yes 750 Werner Garcia &lt 0 06-14 00:00: 00 Yes 200 Werner Garcia TAKE 2 TABLETS BY MOUTH TODAY, THEN TAKE 1 TABLET DAILY FOR 4 DAYS 06-14 00:00: 00 No 250 &lt 0 06-14 00:00: 00 No 10 TAKE 1 TABLET BY MOUTH EVERY 12 HOURS FOR 14 DAYS 06-14 00:00: 00 No 750 escitalopra m 10 mg tablet 06-14 00:00: 00 No 1mg Dose Unknown 06-14 00:00: 00 No cefdinir 300 mg capsule 06-14 00:00: 00 No 1mg TAKE 2 TABLETS BY MOUTH TODAY, THEN TAKE 1 TABLET DAILY FOR 4 DAYS 06-14 00:00: 00 No 250 &lt 0 06-14 00:00: 00 No 10 TAKE 1 TABLET BY MOUTH EVERY 12 HOURS FOR 14 DAYS 0 06-14 00:00: 00 No 750 &lt 0 06-14 00:00: 00 No 200 &lt 0 06-14 00:00: 00 No 200 Dose Unknown 06-14 00:00: 00 No Dose Unknown 06-14 00:00: 00 No TAKE 2 TABLETS BY MOUTH TODAY, THEN TAKE 1 TABLET DAILY FOR 4 DAYS 06-14 00:00: 00 No 250 &lt 0 06-14 00:00: 00 No 10 TAKE 1 TABLET BY MOUTH EVERY 12 HOURS FOR 14 DAYS 06-14 00:00: 00 No 750 &lt 0 06-14 00:00: 00 No 200 escitalopra m 10 mg tablet 06-14 00:00: 00 No 1mg Dose Unknown 06-14 00:00: 00 No cefdinir 300 mg capsule 06-14 00:00: 00 No 1mg TAKE 1 TABLET BY MOUTH EVERY 6 HOURS WITH FOOD OR MILK NEEDED FOR 5 DAYS - 00:00: 00 12-25 00:00 :00 Maddy Garcia ACETAMINOPH EN/CODEINE PHOSPHATE 300-60 MG TABS 05-09 00:00: 00 12-25 00:00 :00 Maddy Garcia ProAir HFA 108 (90 Base) MCG/ACT ProAir HFA 108 (90 Base) MCG/ACT 03-26 00:00: 00 No 2{puffs _as_nee ded} ProAir HFA 108 (90 Base) MCG/ACT ProAir HFA 108 (90 Base) MCG/ACT ProAir HFA 108 (90 Base) MCG/ACT 03-26 00:00: 00 No 2{puffs _as_nee ded} ProAir HFA 108 (90 Base) MCG/ACT ProAir HFA 108 (90 Base) MCG/ACT ProAir HFA 108 (90 Base) MCG/ACT 03-26 00:00: 00 No 2{puffs _as_nee ded} ProAir HFA 108 (90 Base) MCG/ACT ProAir HFA 108 (90 Base) MCG/ACT ProAir HFA 108 (90 Base) MCG/ACT 0 03-26 00:00: 00 No 2{puffs _as_nee ded} ProAir HFA 108 (90 Base) MCG/ACT ProAir HFA 108 (90 Base) MCG/ACT ProAir HFA 108 (90 Base) MCG/ACT 0 03-26 00:00: 00 No 2{puffs _as_nee ded} ProAir HFA 108 (90 Base) MCG/ACT ProAir HFA 108 (90 Base) MCG/ACT ProAir HFA 108 (90 Base) MCG/ACT 2021-0 03-26 00:00: 00 No 2{puffs _as_nee ded} ProAir HFA 108 (90 Base) MCG/ACT ProAir HFA 108 (90 Base) MCG/ACT ProAir HFA 108 (90 Base) MCG/ACT 0 03-26 00:00: 00 No 2{puffs _as_nee ded} ProAir HFA 108 (90 Base) MCG/ACT Benzonatate 200 MG Benzonatate 200 MG 03-26 00:00: 00 04-05 00:00 :00 No 1{capsu le} TID Benzonatat e 200 MG Azithromyci n 250 MG Azithromyci n 250 MG 03-26 00:00: 00 03-31 00:00 :00 No QD Azithromyc in 250 MG Tamiflu 75 MG Tamiflu 75 MG 2020-11 00:00: 00 No 1{capsu le} BID Tamiflu 75 MG Tamiflu 75 MG Tamiflu 75 MG 2020-11 2 00:00: 00 No 1{capsu le} BID Tamiflu 75 MG Tamiflu 75 MG Tamiflu 75 MG 2020-11 2 00:00: 00 No 1{capsu le} BID Tamiflu 75 MG Tamiflu 75 MG Tamiflu 75 MG 2020-11 2- 00:00: 00 No 1{capsu le} BID Tamiflu 75 MG Tamiflu 75 MG Tamiflu 75 MG 2020-11 2- 00:00: 00 No 1{capsu le} BID Tamiflu 75 MG Tamiflu 75 MG Tamiflu 75 MG 2020-11 2- 00:00: 00 No 1{capsu le} BID Tamiflu 75 MG Tamiflu 75 MG Tamiflu 75 MG 2020-11 2- 00:00: 00 No 1{capsu le} BID Tamiflu 75 MG Tamiflu 75 MG Tamiflu 75 MG 2020-11 00:00: 00 No 1{capsu le} BID escitalopra m 10 mg tablet 8- 00:00: 00 Yes 1mg Werner Garcia escitalopra m 10 mg tablet 8- 00:00: 00 No 1mg escitalopra m 10 mg tablet 8- 00:00: 00 No 1mg escitalopra m 10 mg tablet 8 00:00: 00 No 1mg bupropion HCl XL 150 mg 24 hr tablet, extended release 3 00:00: 00 Yes 1mg Werner Garcia bupropion HCl XL 150 mg 24 hr tablet, extended release 3 00:00: 00 No 1mg bupropion HCl XL 150 mg 24 hr tablet, extended release 01-30 00:00: 00 No 1mg bupropion HCl XL 150 mg 24 hr tablet, extended release 01-30 00:00: 00 No 1mg omeprazole 20 mg capsule,del ayed release 2019-11 00:00: 00 Yes 1mg Werner Garcia omeprazole 20 mg capsule,del ayed release 2019-11 00:00: 00 No 1mg omeprazole 20 mg capsule,del ayed release 2019-11 00:00: 00 No 1mg omeprazole 20 mg capsule,del ayed release 2019-11 00:00: 00 No 1mg valacyclovi r 500 mg tablet 2019-11 00:00: 00 Yes 1mg Werner Garcia valacyclovi r 500 mg tablet 2019-11 00:00: 00 No 1mg valacyclovi r 500 mg tablet 2019-11 00:00: 00 No 1mg valacyclovi r 500 mg tablet 2019-11 00:00: 00 No 1mg VIT CALC,IRON,F OLIC ( #2 ORAL) 08-22 15:04: 03 Yes 1{tbl} Take 1 tablet by mouth. [facility] VIT CALC,IRON,F OLIC ( #2 ORAL) 08-22 10:04: 03 Yes 1{tbl} Take 1 tablet by mouth. [facility] ibuprofen 800 mg tablet 08-22 00:00: 00 Yes 800mg Take 1 tablet by mouth every 6 (six) hours as needed for Pain (scale 1-3) or Pain (scale 4-6). [facility] HYDROcodone -acetaminop hen 5-325 mg tablet 08-22 00:00: 00 Yes 1{tbl} Take 1 tablet by mouth every 6 (six) hours as needed for Pain (scale 7-10). [facility] ferrous sulfate 325 mg (65 mg iron) tablet 02-11 00:00: 00 Yes [id number] 325mg Take 1 tablet by mouth 2 (two) times daily with meals. [facility] Nexplanon Nexplanon No Nexplanon Azithromyci n 250 MG Azithromyci n 250 MG No QD Azithromyc in 250 MG Nexplanon Nexplanon No Nexplanon Azithromyci n 250 MG Azithromyci n 250 MG No QD Azithromyc in 250 MG Azithromyci n 250 MG Azithromyci n 250 MG No QD Azithromyc in 250 MG Azithromyci n 250 MG Azithromyci n 250 MG No QD Azithromyc in 250 MG Azithromyci n 250 MG Azithromyci n 250 MG No QD Azithromyc in 250 MG Vyvanse 30 MG Vyvanse 30 MG No 1{capsu le_in_t he_morn ing} QD Vyvanse 30 MG Azithromyci n 250 MG Azithromyci n 250 MG No QD Azithromyc in 250 MG Vyvanse 30 MG Vyvanse 30 MG No 1{capsu le_in_t he_morn ing} QD Vyvanse 30 MG Nexplanon Nexplanon No Nexplanon Immunizations Ordered Immunization Name Filled Immunization Name Date Status Comments Source Influenza, injectable, Madin [facility] Canine Kidney, preservative-free, quadrivalent Influenza, injectable, Madin [place] Canine Kidney, preservative-free, quadrivalent 2023-08-08 00:00:00 Completed Werner Garcia FluAD Quad SIA FluAD Quad SD 2022-08-22 09:05:00 Completed [facility] FluAD Quad SD FluAD Quad SD 2022-08-22 09:05:00 Completed [facility] FluAD Quad SD FluAD Quad SD 2022-08-22 09:05:00 Completed [facility] FluAD Quad SD FluAD Quad SD 2022-08-22 09:05:00 Completed [facility] influenza, injectable influenza, injectable 2022-08-22 00:00:00 Completed Werner Garcia influenza, injectable influenza, injectable 2021-07-29 00:00:00 Completed Werner Garcia Tdap Tdap 2020-05-08 00:00:00 Completed Werner Garcia TD, NOS 2018-03-03 00:00:00 Completed [facility] MMR 2018-03-03 00:00:00 Completed [facility] TD, NOS 2018-03-03 00:00:00 [facility] [facility] 2018-03-03 00:00:00 Completed Td 2018-03-03 00:00:00 Completed [facility] MMR 2018-03-03 00:00:00 Completed [facility] TD, NOS 2018-03-03 00:00:00 Completed [facility] MMR 2018-03-03 00:00:00 Completed [facility] Influenza Virus Vaccine Quad IM Multi-dose 6+ MO 2017-12-27 00:00:00 Completed [facility] Influenza Virus Vaccine Quad IM Multi-dose 6+ MO 2017-12-27 00:00:00 Completed [facility] Influenza Virus Vaccine Quad IM Multi-dose 6+ MO 2017-12-27 00:00:00 Completed [facility] Influenza Virus Vaccine Quad IM Multi-dose 6+ MO 2017-12-27 00:00:00 Completed [facility] Meningococcal MCV4O Meningococcal MCV4O 2016-10-02 00:00:00 Completed Werner Garcia Meningococcal Oligosaccharide (groups A, C, Y and W-135) conjugate vaccine (MCV4O) 2016-10-02 00:00:00 Completed TDAP 2014-04-25 00:00:00 Completed [facility] TDAP 2014-04-25 00:00:00 Completed Tdap 2014-04-25 00:00:00 Completed [facility] TDAP 2014-04-25 00:00:00 Completed [facility] Hep A, ped/adol, 3 dose Hep A, ped/adol, 3 dose 2010-02-20 00:00:00 Completed Werner Garcia HPV, quadrivalent HPV, quadrivalent 2010-02-20 00:00:00 Completed Werner Garcia HEPA-PEDS 2010-02-20 00:00:00 Completed HPV 2010-02-20 00:00:00 Completed HPV, quadrivalent HPV, quadrivalent 2009-10-24 00:00:00 Completed Werner Garcia HPV 2009-10-24 00:00:00 Completed Influenza, seasonal, inj Influenza, seasonal, inj 2009-08-15 00:00:00 Completed Werner Garcia Hep A, ped/adol, 2 dose Hep A, ped/adol, 2 dose 2009-08-15 00:00:00 Completed Werner Garcia varicella varicella 2009-08-15 00:00:00 Completed Werner Garcia HPV, quadrivalent HPV, quadrivalent 2009-08-15 00:00:00 Completed Werner Garcia meningococcal MCV4P meningococcal MCV4P 2009-08-15 00:00:00 Completed Werner Garcia Tdap Tdap 2009-08-15 00:00:00 Completed Werner Garcia Influenza, split virus, trivalent, PF (AFLURIA/FLUARIX/FLUL AVAL/FLUZONE) 2009-08-15 00:00:00 Completed HEPATITIS A 2009-08-15 00:00:00 Completed HPV 2009-08-15 00:00:00 Completed Meningococcal Polysaccharide (groups A, C, Y and W-135) conjugate vaccine (MCV4P) 2009-08-15 00:00:00 Completed TDAP 2009-08-15 00:00:00 Completed Varicella (varivax)(chicken pox) 2009-08-15 00:00:00 Completed HPV 2008-04-19 00:00:00 Completed [facility] HPV 2008-04-19 00:00:00 Completed HPV 2008-04-19 00:00:00 Completed [facility] HPV 2008-04-19 00:00:00 Completed [facility] MMR MMR 2001-03-11 00:00:00 Completed Werner Garcia IPV IPV 2001-03-11 00:00:00 Completed Werner Garcia varicella varicella 2001-03-11 00:00:00 Completed Werner Garcia DTaP, unspecified formul DTaP, unspecified formul 2001-03-11 00:00:00 Completed Werner Colleen Garcia DTaP, Unspecified Formulation 2001-03-11 00:00:00 Completed MMR 2001-03-11 00:00:00 Completed IPV 2001-03-11 00:00:00 Completed Varicella (varivax)(chicken pox) 2001-03-11 00:00:00 Completed Hep B, adolescent or ped Hep B, adolescent or ped 1998-11-28 00:00:00 Completed Werner Garcia Hib (PRP-T) Hib (PRP-T) 1998-11-28 00:00:00 Completed Werner Garcia MMR MMR 1998-11-28 00:00:00 Completed Werner Garcia DTaP, unspecified formul DTaP, unspecified formul 1998-11-28 00:00:00 Completed Werner Garcia DTaP, Unspecified Formulation 1998-11-28 00:00:00 Completed [facility] Hep B, Adol or Pedi Dosage 1998-11-28 00:00:00 Completed HIB 4 Dose Schedule 1998-11-28 00:00:00 Completed MMR 1998-11-28 00:00:00 Completed DTP-Hib DTP-Hib 1997 00:00:00 Completed Werner Garcia OPV OPV 1997 00:00:00 Completed Werner Garcia DPT/HIB 1997 00:00:00 Completed Poliovirus, Live, Oral, Trivalent 1997 00:00:00 Completed OPV OPV 1997 00:00:00 Completed Werner Garcia DTP-Hib DTP-Hib 1997 00:00:00 Completed Werner Garcia DPT/HIB 1997 00:00:00 Completed Poliovirus, Live, Oral, Trivalent 1997 00:00:00 Completed DTP-Hib DTP-Hib 1997 00:00:00 Completed Werner Garcia OPV OPV 1997 00:00:00 Completed Werner Garcia DPT/HIB 1997 00:00:00 Completed Poliovirus, Live, Oral, Trivalent 1997 00:00:00 Completed Hep B, adolescent or ped Hep B, adolescent or ped 1997 00:00:00 Completed Werner Garcia Hep B, Adol or Pedi Dosage 1997 00:00:00 Completed Hep B, adolescent or ped Hep B, adolescent or ped 1997 00:00:00 Completed Werner Colleen Jose Hep B, Adol or Pedi Dosage 1997 00:00:00 Completed HPV 4 (Human Papillomavirus) Unknown Completed Korin madsen - External Meningococcal Vaccine- Conjugate(Menveo) Unknown Completed Korin estevez - External Meningococcal Vaccine- Conjugate(Menactra) Unknown Completed Korin luna - External MMR- Measles, Mumps, Rubella Unknown Completed Korin Maria - External MMR- Measles, Mumps, Rubella Unknown Completed Korin Maria External IPV- Inactivated Polio Vaccine Unknown Completed Korin Maria - External OPV- Oral Polio Vaccine Unknown Completed Korin Maria External Tdap- (Boostrix, Adacel) Unknown Completed Korin Maria External Varicella Vaccine Unknown Completed Donny Maria - External Influenza Virus Vaccine, No Preserv, age 6 months and up Unknown Completed Korin luna - External Influenza Virus Vaccine, No Preserv, age 6 months and up Unknown Completed Korin luna - External Influenza, Injectable, Mdck, Preservative Free, Quadrivalent Unknown Completed Korin Maria - External DPT/HIB Unknown Completed Korin estevez - External DTaP Unspecified Unknown Completed Long Maria - External Tdap- (Boostrix, Adacel) Unknown Completed Korin Maria - External Td (adult) Unknown Completed Korin ferraro - External PPD-Protein Derivative (Purified)- Tuberculin Unknown Completed Korin Maria - External DTaP Unknown Completed Korin estevez - External Influenza Virus Vaccine, Split, up to age 3 Unknown Completed Korin Maria - External Polio Vaccine Unknown Completed Korin Maria - External AFLURIA TRIVALENT PF(0.5mL) Unknown Completed Korin Maria - External HEPATITIS A- PEDI/ADOL Unknown Completed Korin Maria - External Hep A, ped/adol, 3 dose Unknown Completed Korin Maria External Hepatitis B, Adolescent Or Pediatric Unknown Completed Korin Maria External HIB- Haemophilus Influenzae Type B Unknown Completed Korin estevez External HPV 4 (Human Papillomavirus) Unknown Completed Korin Gaxiolareginald tena - External Meningococcal Vaccine- Conjugate(Menveo) Unknown Completed Korin estevez - External Meningococcal Vaccine- Conjugate(Menactra) Unknown [facility] MMR- Measles, Mumps, Rubella Unknown Completed Korin [facility] External MMR- Measles, Mumps, Rubella Unknown Com[facility] External IPV- Inactivated Polio Vaccine Unknown Com[facility] External OPV- Oral Polio Vaccine Unknown Com[facility] External Tdap- (Boostrix, Adacel) Unknown [facility] - External Influenza Virus Vaccine, No Preserv, age 6 months and up Unknown Completed Korin [facility] External Varicella Vaccine Unknown Completed [facility] - External Influenza Virus Vaccine, No Preserv, age 6 months and up Unknown [facility] Influ[facility], Injectable, Mdck, Preservative Free, Quadrivalent Unknown Completed Korin Maria [facility] DPT/HIB Unknown Completed Korin Leon zenaida - External DTaP Unspecified Unknown Completed Long vivek Maria [facility] Td (adult) Unknown Completed Korin ferraro External PPD-Protein Derivative (Purified)- Tuberculin Unknown Com[facility] External DTaP Unknown Completed Korin Billingsthania estevez External Influenza Virus Vaccine, Split, up to age 3 Unknown Completed [facility] External Polio Vaccine Unknown Com[facility] External AFLURIA TRIVALENT PF(0.5mL) Unknown Completed Korin Maria [facility] HEPATITIS A- PEDI/ADOL Unknown Completed Korin Maria External Hep A, ped/adol, 3 dose Unknown Com[facility] External Influenza Virus Vaccine, No Preserv, age 6 months and up Unknown Com[facility] External Hepatitis B, Adolescent Or Pediatric Unknown Completed Korin Maria External HIB- Haemophilus Influenzae Type B Unknown Completed Korin Billingsthania estevez - External HPV 4 (Human Papillomavirus) Unknown Completed [facility]in [facility] - External Meningococcal Vaccine- Conjugate(Menveo) Unknown Completed Korin Sethania zenaida External Meningococcal Vaccine- Conjugate(Menactra) Unknown Completed [facility] External MMR- Measles, Mumps, Rubella Unknown Completed [facility] External MMR- Measles, Mumps, Rubella Unknown Completed [facility] External IPV- Inactivated Polio Vaccine Unknown Completed [facility] External OPV- Oral Polio Vaccine Unknown Completed [facility] External Tdap- (Boostrix, Adacel) Unknown Completed [facility] External Influenza Virus Vaccine, No Preserv, age 6 months and up Unknown Completed [facility] External Varicella Vaccine Unknown Completed [facility] old - External Influenza Virus Vaccine, No Preserv, age 6 months and up Unknown Completed [facility] External Influenza Virus Vaccine, No Preserv, age 6 months and up Unknown Completed [facility] Influenza, Injectable, Mdck, Preservative Free, Quadrivalent Unknown Completed [facility] External DPT/HIB Unknown Completed Korin Sethania zenaida - External DTaP Unspecified Unknown Completed [facility] External Td (adult) Unknown Completed Korin [facility] PPD-Protein Derivative (Purified)- Tuberculin Unknown Completed [facility] External Influenza, Injectable, Mdck, Preservative Free, Quadrivalent Unknown Completed [facility] External DTaP Unknown Completed Korin Sethania zenaida [facility] Influenza Virus Vaccine, Split, up to age 3 Unknown Completed Korin [facility] External Polio Vaccine Unknown [facility]IA [facility]AL[facility](0.5mL) Unknown [facility]IT[facility]- P[facility]I/ADOL Unknown Completed [facility] External DPT/HIB Unknown Completed Korinvivek estevez External Hep A, ped/adol, 3 dose Unknown Completed Korin [facility] External Hepatitis B, Adolescent Or Pediatric Unknown Completed Korin [facility] External HIB- Haemophilus Influenzae Type B Unknown Completed Korin thania zenaida External HPV 4 (Human Papillomavirus) Unknown Completed [facility]invivek [facility] - External Meningococcal Vaccine- Conjugate(Menveo) Unknown Completed Korin estevez - External Meningococcal Vaccine- Conjugate(Menactra) Unknown Completed Korin nuñezbold - External MMR- Measles, Mumps, Rubella Unknown Completed Korin Maria External MMR- Measles, Mumps, Rubella Unknown Completed Korin Maria External IPV- Inactivated Polio Vaccine Unknown Completed Korin Maria External OPV- Oral Polio Vaccine Unknown [facility] Tdap- (Boostrix, Adacel) Unknown Com[facility] External Varicella Vaccine Unknown Completed Donny joaquin Billingsold - External Influenza Virus Vaccine, No Preserv, age 6 months and up Unknown Completed Korin nuñezbold External Influenza Virus Vaccine, No Preserv, age 6 months and up Unknown Completed Korin [facility] External Influenza, Injectable, Mdck, Preservative Free, Quadrivalent Unknown Completed Korin Maria External DPT/HIB Unknown Completed Korin estevez - External DTaP Unspecified Unknown Com[facility] Td (adult) Unknown Completed Korin ronan External PPD-Protein Derivative (Purified)- Tuberculin Unknown Completed Korin [facility] - External DTaP Unspecified Unknown Completed Long leon Seybold - External Td (adult) Unknown Completed Korin ferraro - External DTaP Unknown Completed Korin estevez External Influenza Virus Vaccine, age 6 months and up Unknown Completed Korin Maira External Polio Vaccine Unknown Completed Korni Maria External Influenza, Seasonal, Injectable, Preservative Free Unknown Completed Korin estevez - External HEPATITIS A- PEDI/ADOL Unknown Completed Korin Billingsmargy External Hep A, ped/adol, 3 dose Unknown Completed Korin Maria External Hepatitis B, Adolescent Or Pediatric Unknown Completed Korin Maria - External HIB- Haemophilus Influenzae Type B Unknown Completed Korin estevez - External HPV 4 (Human Papillomavirus) Unknown Completed Korin Gaxiolareginald ld - External Meningococcal Vaccine- Conjugate(Menveo) Unknown Completed Korin estevez - External Meningococcal Vaccine- Conjugate(Menactra) Unknown Completed Korin nuñezbold - External MMR- Measles, Mumps, Rubella Unknown Com[facility] External MMR- Measles, Mumps, Rubella Unknown Completed Korin Maria External IPV- Inactivated Polio Vaccine Unknown Completed Korin Billingsybold - External OPV- Oral Polio Vaccine Unknown Completed Korin Gaxiolaold - External Tdap- (Boostrix, Adacel) Unknown Completed Korin Billingsybold External Varicella Vaccine Unknown Completed Donny leavitt Seybold - External FluAD Quad SD FluAD Quad SD Unknown Completed [facility] Influenza Virus Vaccine, No Preserv, age 6 months and up Unknown Completed Korin nuñezbold - External Influenza Virus Vaccine, No Preserv, age 6 months and up Unknown Completed Korin joaquinbold - External Influenza, Injectable, Mdck, Preservative Free, Quadrivalent Unknown Completed Korin Gaxiolaold - External DPT/HIB Unknown Completed Korin Billingsthania bold - External DTaP Unspecified Unknown Completed Long billingsthania ybold - External Td (adult) Unknown Completed Korin Billings ybmargy - External DTaP Unknown Completed Korin Billingsthania bold - External Influenza Virus Vaccine, age 6 months and up Unknown Com[facility] External Polio Vaccine Unknown Completed Korin Maria External Influenza, Seasonal, Injectable, Preservative Free Unknown Completed Korin estevez - External HEPATITIS A- PEDI/ADOL Unknown Completed Korin Maria External Hep A, ped/adol, 3 dose Unknown Completed Korin Gaxiolaold - External Hepatitis B, Adolescent Or Pediatric Unknown Completed Korin Maria - External HIB- Haemophilus Influenzae Type B Unknown Completed Korin estevez - External HPV 4 (Human Papillomavirus) Unknown Completed Korin [facility] - External Meningococcal Vaccine- Conjugate(Menveo) Unknown Completed Korin Billingsthania bold - External Meningococcal Vaccine- Conjugate(Menactra) Unknown Completed Korin nuñezbold - External MMR- Measles, Mumps, Rubella Unknown Completed Korin Billingsybold - External MMR- Measles, Mumps, Rubella Unknown Completed Korin Gaxiolaold - External IPV- Inactivated Polio Vaccine Unknown Completed Korin Billingsybold - External OPV- Oral Polio Vaccine Unknown Com[facility] Tdap- (Boostrix, Adacel) Unknown Com[facility] Varicella Vaccine Unknown Completed Donny leavitt Seybold - External Influenza Virus Vaccine, No Preserv, age 6 months and up Unknown Completed Korin nuñezbold - External Influenza Virus Vaccine, No Preserv, age 6 months and up Unknown Completed Korin nuñezbold - External Influenza, Injectable, Mdck, Preservative Free, Quadrivalent Unknown Completed Korin Billingsybold - External DPT/HIB Unknown Completed Korin Leon bold - External DTaP Unspecified Unknown Completed Long leon Seybold - External Td (adult) Unknown Com[facility] D[facility] Unknown Completed Korin Billings bold - External Influenza Virus Vaccine, age 6 months and up Unknown Com[facility] Polio Vaccine Unknown Completed Korin Gaxiolaold External Influenza, Seasonal, Injectable, Preservative Free Unknown Completed Korin Leon bold - External HEPATITIS A- PEDI/ADOL Unknown Com[facility] Hep A, ped/adol, 3 dose Unknown Completed Korin Maria External Hepatitis B, Adolescent Or Pediatric Unknown Completed Korin Billingsybold - External HIB- Haemophilus Influenzae Type B Unknown Completed Korin estevez - External HPV 4 (Human Papillomavirus) Unknown Completed Korinvivek [facility] - External Meningococcal Vaccine- Conjugate(Menveo) Unknown Completed Korin Leon bold - External Meningococcal Vaccine- Conjugate(Menactra) Unknown Completed Korin nuñezbold - External MMR- Measles, Mumps, Rubella Unknown [facility]- Measles, Mumps, Rubella Unknown Completed Korin Gaxiolaold External IPV- Inactivated Polio Vaccine Unknown [facility] OPV- Oral Polio Vaccine Unknown Com[facility] External Tdap- (Boostrix, Adacel) Unknown Com[facility] External Varicella Vaccine Unknown Completed Donny leavitt ybold - External Influenza Virus Vaccine, No Preserv, age 6 months and up Unknown Completed Korin Hammer eybold - External Influenza Virus Vaccine, No Preserv, age 6 months and up Unknown Completed Korin nuñezbold - External Influenza, Injectable, Mdck, Preservative Free, Quadrivalent Unknown Completed Korin Billingsybold - External DPT/HIB Unknown Completed Korin Leon bold - External DTaP Unspecified Unknown Completed Long billingsthania ybold - External Td (adult) Unknown Completed Korin ybold - External DTaP Unknown Completed Korin Billingsthania bold - External DTaP Unknown Completed Korin Billingsthania bold - External Influenza Virus Vaccine, age 6 months and up Unknown Completed Korin Billingsybold - External Polio Vaccine Unknown Completed Korin Gaxiolaold - External Influenza, Seasonal, Injectable, Preservative Free Unknown Completed Korin Leon bold - External HEPATITIS A- PEDI/ADOL Unknown Completed Korin Maria External Hep A, ped/adol, 3 dose Unknown Completed Korin Gaxiolaold - External Hepatitis B, Adolescent Or Pediatric Unknown Completed Korin Gaxiolaold - External HIB- Haemophilus Influenzae Type B Unknown Completed Korin Leon bold - External HPV 4 (Human Papillomavirus) Unknown Completed Korin [facility] - External Meningococcal Vaccine- Conjugate(Menveo) Unknown Completed Korin Leon bold - External Meningococcal Vaccine- Conjugate(Menactra) Unknown Completed Korin Hammer eybold - External MMR- Measles, Mumps, Rubella Unknown Completed Korin Gaxiolaold - External Influenza Virus Vaccine, age 6 months and up Unknown Completed Korin Gaxiolaold - External MMR- Measles, Mumps, Rubella Unknown Completed Korin Gaxiolaold - External IPV- Inactivated Polio Vaccine Unknown Completed Korin Maria External OPV- Oral Polio Vaccine Unknown Com[facility] External Tdap- (Boostrix, Adacel) Unknown Com[facility] External Varicella Vaccine Unknown Completed [facility] ybold - External Polio Vaccine Unknown Completed Korin Gaxiolaold - External Influenza Virus Vaccine, No Preserv, age 6 months and up Unknown Completed Korin nuñezbold - External Influenza Virus Vaccine, No Preserv, age 6 months and up Unknown Completed Korin nuñezbold - External Influenza, Injectable, Mdck, Preservative Free, Quadrivalent Unknown Completed Korin Maria External DPT/HIB Unknown Completed Korin estevez - External DTaP Unspecified Unknown Completed Long leon Seybold - External Td (adult) Unknown Completed Korin Billings ybold - External Influenza, Seasonal, Injectable, Preservative Free Unknown Completed Korin Leon bold - External DTaP Unknown Completed Korin estevez - External Influenza Virus Vaccine, age 6 months and up Unknown Completed Korin Billingsybold - External Polio Vaccine Unknown Completed Korin Gaxiolaold External Influenza, Seasonal, Injectable, Preservative Free Unknown Completed Korin Leon bold - External HEPATITIS A- PEDI/ADOL Unknown Completed Korin Gaxiolaold - External Hep A, ped/adol, 3 dose Unknown Completed Korin Billingsybold - External HEPATITIS A- PEDI/ADOL Unknown [facility] B, Adolescent Or Pediatric Unknown [facility] HIB- Haemophilus Influenzae Type B Unknown Completed Korin estevez - External HPV 4 (Human Papillomavirus) Unknown Completed Korin Billingsreginald ld - External Meningococcal Vaccine- Conjugate(Menveo) Unknown Completed Korin estevez - External Hep A, ped/adol, 3 dose Unknown [facility] Meningococcal Vaccine- Conjugate(Menactra) Unknown Completed Korin Hammer eybold - External MMR- Measles, Mumps, Rubella Unknown Completed Korin Seybold - External MMR- Measles, Mumps, Rubella Unknown Completed Korin Billingsold - External IPV- Inactivated Polio Vaccine Unknown Completed Korin Seold - External OPV- Oral Polio Vaccine Unknown Completed Korin Billingsold - External Tdap- (Boostrix, Adacel) Unknown Completed Korin Seold - External Hepatitis B, Adolescent Or Pediatric Unknown Completed Korin Seold - External Varicella Vaccine Unknown Completed wily ybold - External Influenza Virus Vaccine, No Preserv, age 6 months and up Unknown Completed Korin eybold - External Influenza Virus Vaccine, No Preserv, age 6 months and up Unknown Completed Korin joaquinbo - External Influenza, Injectable, Mdck, Preservative Free, Quadrivalent Unknown Completed Korin Billingsybold - External DPT/HIB Unknown Completed Korin Leon bold - External DTaP Unspecified Unknown Completed Long billingsthania old - External Td (adult) Unknown [facility] Completed Korin Billingsthania zenaida - External HIB- Haemophilus Influenzae Type B Unknown Completed Korin estevez - External Influenza Virus Vaccine, age 6 months and up Unknown Completed Korin Billingsybold - External Polio Vaccine Unknown Completed Korin Billingsybold - External Influenza, Seasonal, Injectable, Preservative Free Unknown Completed Korin estevez - External HEPATITIS A- PEDI/ADOL Unknown Completed Korin Billingsybold - External Hep A, ped/adol, 3 dose Unknown Completed Korin Billingsybold - External Hepatitis B, Adolescent Or Pediatric Unknown Completed Korin Billingsybold - External HPV 4 (Human Papillomavirus) Unknown Completed Korin Billingsreginald ld - External HIB- Haemophilus Influenzae Type B Unknown Completed Korin estevez External HPV 4 (Human Papillomavirus) Unknown Completed Korin Gaxiolareginald ld - External Meningococcal Vaccine- Conjugate(Menveo) Unknown Completed [facility] Leon bold - External Meningococcal Vaccine- Conjugate(Menactra) Unknown [facility]- Measles, Mumps, Rubella Unknown Completed Korin [facility] External MMR- Measles, Mumps, Rubella Unknown Completed Korin Billingsmargy External IPV- Inactivated Polio Vaccine Unknown Com[facility]in [facility] OPV- Oral Polio Vaccine Unknown Completed [facility]in [facility] External Tdap- (Boostrix, Adacel) Unknown Completed [facility] External Varicella Vaccine Unknown Completed [facility] old - External Influenza Virus Vaccine, No Preserv, age 6 months and up Unknown Completed [facility] External Influenza Virus Vaccine, No Preserv, age 6 months and up Unknown Com[facility] External Influenza, Injectable, Mdck, Preservative Free, Quadrivalent Unknown Completed Korin Maria - External DPT/HIB Unknown Completed Korinvivek estevez - External DTaP Unspecified Unknown Completed Long Maria - External Td (adult) Unknown Completed Korin ferraro - External Meningococcal Vaccine- Conjugate(Menveo) Unknown Completed Korinvivek estevez - External DTaP Unknown Completed Korin estevez External Influenza Virus Vaccine, age 6 months and up Unknown Completed Korin Maria External Polio Vaccine Unknown Completed Korin Maria External Influenza, Seasonal, Injectable, Preservative Free Unknown Completed Korin estevez - External HEPATITIS A- PEDI/ADOL Unknown Completed Korinvivek Maria External Hep A, ped/adol, 3 dose Unknown Completed Korin Maria - External Hepatitis B, Adolescent Or Pediatric Unknown Completed Korinvivek Maria - External Meningococcal Vaccine- Conjugate(Menactra) Unknown [facility] HIB- Haemophilus Influenzae Type B Unknown Completed Korin estevez - External HPV 4 (Human Papillomavirus) Unknown Completed Korin Gaxiolareginald ld - External Meningococcal Vaccine- Conjugate(Menveo) Unknown Completed Korin estevez - External Meningococcal Vaccine- Conjugate(Menactra) Unknown [facility] MMR- Measles, Mumps, Rubella Unknown Completed Korin Maria - External MMR- Measles, Mumps, Rubella Unknown Completed Korinvivek Maria External MMR- Measles, Mumps, Rubella Unknown Completed Korin Semargy External IPV- Inactivated Polio Vaccine Unknown Completed Korin Semargy External OPV- Oral Polio Vaccine Unknown Completed [facility] External Tdap- (Boostrix, Adacel) Unknown Completed [facility] External Varicella Vaccine Unknown Completed Donny julienjoaquin [facility] - External Influenza Virus Vaccine, No Preserv, age 6 months and up Unknown Completed Korin nuñezbold External Influenza Virus Vaccine, No Preserv, age 6 months and up Unknown Completed Korin cheryl - External Influenza, Injectable, Mdck, Preservative Free, Quadrivalent Unknown Completed Korin Maria - External DPT/HIB Unknown Completed Korinvivek estevez - External DTaP Unspecified Unknown Completed Long thania [facility] External MMR- Measles, Mumps, Rubella Unknown Completed Korin Minormargy - External Td (adult) Unknown Completed Korin Billings angel[facility] External PPD-Protein Derivative (Purified)- Tuberculin Unknown Completed Korin Maria External IPV- Inactivated Polio Vaccine Unknown Completed Korin Maria - External DTaP Unknown Completed Korinvivek estevez - External Influenza Virus Vaccine, age 6 months and up Unknown Completed Korin Maria - External Polio Vaccine Unknown Completed Korin Maria [facility] AFLURIA TRIVALENT PF(0.5mL) Unknown Completed Korinvivek Gaxiolamargy External HEPATITIS A- PEDI/ADOL Unknown Completed Korinvivek Gaxiolamargy - External Hep A, ped/adol, 3 dose Unknown Completed Korin Crow - External Hepatitis B, Adolescent Or Pediatric Unknown Completed Korin Crow - External OPV- Oral Polio Vaccine Unknown Completed Korin Crow - External HIB- Haemophilus Influenzae Type B Unknown Completed Korin estevez - External Vital Signs Vital Name Observation Time Observation Value Comments S ource Systolic blood pressure 2024-01-01 14:31:00 106 mm[Hg] Korin Mcbride ld - External Diastolic blood pressure 2024-01-01 14:31:00 72 mm[Hg] Korin Mcbride ld - External Heart rate 2024-01-01 14:31:00 94 /min Karly Maria - External Body temperature 2024-01-01 14:31:00 36.28 Tammy Korin Maria - External Respiratory rate 2024-01-01 14:31:00 14 /min Korin Maria - External Body height 2024-01-01 14:31:00 152.4 cm Lottie Maria - External Body weight 2024-01-01 14:31:00 79.833 kg Lottie nuñez Seybold - External BMI 2024-01-01 14:31:00 34.37 kg/m2 Lottie nuñez Seybold - External height 2022-06-26 16:00:00 61 [in_i] Commo n [facility] weight 2022-06-26 16:00:00 155 [lb_av] Comm on [facility] temperature 2022-06-26 16:00:00 98.6 [degF] Com mon [facility] bmi 2022-06-26 16:00:00 29.28 kg/m2 Comm on [facility] blood pressure systolic 2022-06-26 16:00:00 118 mm[Hg] Common [facility] blood pressure diastolic 2022-06-26 16:00:00 68 mm[Hg] Common [facility] height 2022-03-26 09:00:00 61 [in_i] Commo n [facility] weight 2022-03-26 09:00:00 160 [lb_av] Comm on [facility] temperature 2022-03-26 09:00:00 98 [degF] Comm on [facility] bmi 2022-03-26 09:00:00 30.23 kg/m2 Comm on [facility] height 2022-01-05 14:40:00 61 [in_i] Commo n [facility] weight 2022-01-05 14:40:00 156 [lb_av] Comm on [facility] bmi 2022-01-05 14:40:00 29.47 kg/m2 Comm on [facility] height 2021-12-25 14:30:00 61 [in_i] Commo n [facility] weight 2021-12-25 14:30:00 156.7 [lb_av] Co mmon [facility] temperature 2021-12-25 14:30:00 97.7 [degF] Com mon [facility] bmi 2021-12-25 14:30:00 29.6 kg/m2 Commo n [facility] oximetry 2021-12-25 14:30:00 100 % Commo n [facility] respiratory rate 2021-12-25 14:30:00 18 /min Common [facility] blood pressure systolic 2021-12-25 14:30:00 117 mm[Hg] [facility] blood pressure diastolic 2021-12-25 14:30:00 66 mm[Hg] Common [facility] height 2021-11-16 11:40:00 61 [in_i] Commo n [facility] weight 2021-11-16 11:40:00 144 [lb_av] Comm on [facility] bmi 2021-11-16 11:40:00 27.21 kg/m2 Comm on [facility] height 2021-11-13 07:50:00 61 [in_i] Commo n [facility] weight 2021-11-13 07:50:00 144 [lb_av] Comm on [facility] temperature 2021-11-13 07:50:00 98 [degF] Comm on [facility] bmi 2021-11-13 07:50:00 27.21 kg/m2 Comm on [facility] blood pressure systolic 2021-11-13 07:50:00 120 mm[Hg] Common [facility] blood pressure diastolic 2021-11-13 07:50:00 75 mm[Hg] Common [facility] height 2021-10-05 09:40:00 61 [in_i] Commo n [facility] weight 2021-10-05 09:40:00 144 [lb_av] Comm on [facility] temperature 2021-10-05 09:40:00 97 [degF] Comm on [facility] bmi 2021-10-05 09:40:00 27.21 kg/m2 Comm on [facility] blood pressure systolic 2021-10-05 09:40:00 120 mm[Hg] Common [facility] blood pressure diastolic 2021-10-05 09:40:00 68 mm[Hg] Common [facility] height 2021-07-27 13:30:00 61 [in_i] Commo n [facility] weight 2021-07-27 13:30:00 154.0 [lb_av] Co mmon [facility] temperature 2021-07-27 13:30:00 97.5 [degF] Com mon [facility] bmi 2021-07-27 13:30:00 29.09 kg/m2 Comm on [facility] oximetry 2021-07-27 13:30:00 97 % Commo n [facility] respiratory rate 2021-07-27 13:30:00 16 /min [facility] blood pressure systolic 2021-07-27 13:30:00 112 mm[Hg] Common [facility] blood pressure diastolic 2021-07-27 13:30:00 70 mm[Hg] [facility] BP Systolic 2024-09-15 16:56:00 124 mm[Hg] Humberto Garcia BP Diastolic 2024-09-15 16:56:00 60 mm[Hg] Shukri Garcia Weight Measured 2024-09-15 16:56:00 159.40 pounds Werner Garcia Height Measured 2024-09-15 16:56:00 60.63 inches Werner Colleen Jose Body Temperature 2024-09-15 16:56:00 98.20 degrees Werner F Jose Heart Rate 2024-09-15 16:56:00 89.00 /min Lizeth en F Jose Respiratory Rate 2024-09-15 16:56:00 18.00 /min Werner F Jose BP Systolic 2024-09-15 16:55:00 Step hen F Jose BP Diastolic 2024-09-15 16:55:00 Shukri phen F Jose Weight Measured 2024-09-15 16:55:00 159.40 pounds Werner F Jose Height Measured 2024-09-15 16:55:00 60.60 inches Werner F Jose Body Temperature 2024-09-15 16:55:00 Werner F Jose Heart Rate 2024-09-15 16:55:00 Lizeth en F Jose Respiratory Rate 2024-09-15 16:55:00 Werner F Jose BP Systolic 2023-08-09 09:49:00 121 mm[Hg] Step hen F Jose BP Diastolic 2023-08-09 09:49:00 81 mm[Hg] Shukri phen F Jose Weight Measured 2023-08-09 09:49:00 177.80 pounds Werner F Jose Height Measured 2023-08-09 09:49:00 60.63 inches Werner F Jose Body Temperature 2023-08-09 09:49:00 98.10 degrees Werner F Jose Heart Rate 2023-08-09 09:49:00 75.00 /min Lizeth en F Jose Respiratory Rate 2023-08-09 09:49:00 Werner F Jose BP Systolic 2023-08-08 11:41:00 106 mm[Hg] Step hen F Jose BP Diastolic 2023-08-08 11:41:00 72 mm[Hg] Shukri phen F Jose Weight Measured 2023-08-08 11:41:00 176.80 pounds Werner F Jose Height Measured 2023-08-08 11:41:00 60.63 inches Werner F Jose Body Temperature 2023-08-08 11:41:00 97.20 degrees Werner F Jose Heart Rate 2023-08-08 11:41:00 84.00 /min Lizeth en F Jose Respiratory Rate 2023-08-08 11:41:00 Werner F Jose BP Systolic 2023-08-01 09:24:00 123 mm[Hg] Step hen F Jose BP Diastolic 2023-08-01 09:24:00 82 mm[Hg] Shukri phen F Jose Weight Measured 2023-08-01 09:24:00 179.80 pounds Werner F Jose Height Measured 2023-08-01 09:24:00 60.63 inches Werner F Jose Body Temperature 2023-08-01 09:24:00 98.20 degrees Werner F Jose Heart Rate 2023-08-01 09:24:00 83.00 /min Lizeth en F Jose Respiratory Rate 2023-08-01 09:24:00 19.00 /min Werner F Jose BP Systolic 2023-07-02 15:01:00 Step hen F Jose BP Diastolic 2023-07-02 15:01:00 Shukri phen F Jose Weight Measured 2023-07-02 15:01:00 Werner F Ojse Height Measured 2023-07-02 15:01:00 Werner F Jose Body Temperature 2023-07-02 15:01:00 Werner F Jose Heart Rate 2023-07-02 15:01:00 Lizeth en F Jose Respiratory Rate 2023-07-02 15:01:00 Werner F Jose BP Systolic 2022-11-06 09:46:00 115 mm[Hg] Step hen F Jose BP Diastolic 2022-11-06 09:46:00 81 mm[Hg] Shukri phen F Jose Weight Measured 2022-11-06 09:46:00 173.40 pounds Werner F Jose Height Measured 2022-11-06 09:46:00 60.63 inches Werner F Jose Body Temperature 2022-11-06 09:46:00 98.30 degrees Werner F Jose Heart Rate 2022-11-06 09:46:00 91.00 /min Lizeth en F Jose Respiratory Rate 2022-11-06 09:46:00 18.00 /min Werner F Jose BP Systolic 2022-09-04 11:10:00 107 mm[Hg] Step hen F Jose BP Diastolic 2022-09-04 11:10:00 68 mm[Hg] Shukri phen F Jose Weight Measured 2022-09-04 11:10:00 169.20 pounds Werner F Jose Height Measured 2022-09-04 11:10:00 60.63 inches Werner F Jose Body Temperature 2022-09-04 11:10:00 99.00 degrees Werner F Jose Heart Rate 2022-09-04 11:10:00 101.00 /min Step hen F Jose Respiratory Rate 2022-09-04 11:10:00 Werner F Jose BP Systolic 2021-11-09 08:53:00 113 mm[Hg] Step hen F Jose BP Diastolic 2021-11-09 08:53:00 68 mm[Hg] Shukri phen F Jose Weight Measured 2021-11-09 08:53:00 155.20 pounds Werner F Jose Height Measured 2021-11-09 08:53:00 60.63 inches Werner F Jose Body Temperature 2021-11-09 08:53:00 98.10 degrees Werner F Jose Heart Rate 2021-11-09 08:53:00 93.00 /min Lizeth en F Jose Respiratory Rate 2021-11-09 08:53:00 Werner F Jose BP Systolic 2021-07-17 08:44:00 119 mm[Hg] Step hen F Jose BP Diastolic 2021-07-17 08:44:00 79 mm[Hg] Shukri phen F Jose Weight Measured 2021-07-17 08:44:00 148.40 pounds Werner F Jose Height Measured 2021-07-17 08:44:00 60.63 inches Werner F Jose Body Temperature 2021-07-17 08:44:00 98.10 degrees Werner F Jose Heart Rate 2021-07-17 08:44:00 91.00 /min Lizeth en F Jose Respiratory Rate 2021-07-17 08:44:00 17.00 /min Werner F Jose BP Systolic 2020-11-07 17:41:00 108 mm[Hg] BP Diastolic 2020-11-07 17:41:00 72 mm[Hg] Weight Measured 2020-11-07 17:41:00 166.80 pounds Height Measured 2020-11-07 17:41:00 60.63 inches Body Temperature 2020-11-07 17:41:00 98.10 degrees Heart Rate 2020-11-07 17:41:00 83.00 /min Respiratory Rate 2020-11-07 17:41:00 BP Systolic 2020-11-07 14:12:00 108 mm[Hg] BP Diastolic 2020-11-07 14:12:00 72 mm[Hg] Weight Measured 2020-11-07 14:12:00 367.73 pounds Height Measured 2020-11-07 14:12:00 60.63 inches Body Temperature 2020-11-07 14:12:00 98.10 degrees Heart Rate 2020-11-07 14:12:00 83.00 /min Respiratory Rate 2020-11-07 14:12:00 BP Systolic 2020-10-27 14:01:00 103 mm[Hg] BP Diastolic 2020-10-27 14:01:00 65 mm[Hg] Weight Measured 2020-10-27 14:01:00 165.80 pounds Height Measured 2020-10-27 14:01:00 60.63 inches Body Temperature 2020-10-27 14:01:00 98.60 degrees Heart Rate 2020-10-27 14:01:00 63.00 /min Respiratory Rate 2020-10-27 14:01:00 18.00 /min BP Systolic 2020-10-17 14:22:00 124 mm[Hg] BP Diastolic 2020-10-17 14:22:00 80 mm[Hg] Weight Measured 2020-10-17 14:22:00 162.00 pounds Height Measured 2020-10-17 14:22:00 60.63 inches Body Temperature 2020-10-17 14:22:00 98.80 degrees Heart Rate 2020-10-17 14:22:00 76.00 /min Respiratory Rate 2020-10-17 14:22:00 17.00 /min Procedures Procedure Date / Time Performed Performing Clinician Source ASSIGNMENT OF BENEFITS 2023-04-30 16:16:11 Docto r Unassigned, Rake [facility] AUTHORIZATION FOR RELEASE OF PHI 2019-06-29 05:01:00 Doctor Unassigned, Rake [facility] DISCLOSURE AND CONSENT, MEDICAL AND SURGICAL PROCEDURES 2018-04-09 05:01:00 Doctor Unassigned, Rake [facility] CONSENT FOR CONTRACEPTION 2018-04-09 05:01:00 Doctor Unassigned, Rake [facility] Plan of Care Planned Activity Planned Date Details Comments Source Goal Plan of Care Note [code = 20056-4] Goal Plan of Care Note [code = 44890-0] Goal Plan of Care Note [code = 37533-6] Goal Plan of Care Note [code = 66649-5] Goal Plan of Care Note [code = 72134-1] Goal Plan of Care Note [code = 67455-2] Goal Plan of Care Note [code = 35525-1] Goal Plan of Care Note [code = 56958-9] Goal Plan of Care Note [code = 50978-7] Goal Plan of Care Note [code = 93274-6] Goal Plan of Care Note [code = 13791-3] Goal Plan of Care Note [code = 91435-0] Goal Plan of Care Note [code = 04905-0] Goal Plan of Care Note [code = 06412-3] Goal Plan of Care Note [code = 83801-6] Goal Plan of Care Note [code = 21989-1] Goal Plan of Care Note [code = 89042-3] Goal Plan of Care Note [code = 88184-7] Goal Plan of Care Note [code = 39503-7] Goal Plan of Care Note [code = 87966-4] Goal Plan of Care Note [code = 47150-7] Goal Plan of Care Note [code = 32649-1] Goal Plan of Care Note [code = 32186-4] Goal Plan of Care Note [code = 36584-4] Goal Plan of Care Note [code = 99022-5] Goal Plan of Care Note [code = 49713-9] Goal Plan of Care Note [code = 56240-8] Goal Plan of Care Note [code = 67033-5] Goal Plan of Care Note [code = 11228-5] Goal Plan of Care Note [code = 54237-3] Goal Plan of Care Note [code = 48682-7] Goal Plan of Care Note [code = 15906-9] Goal Plan of Care Note [code = 77514-5] Goal Plan of Care Note [code = 28098-7] Goal Plan of Care Note [code = 01809-0] Goal Plan of Care Note [code = 51973-3] Goal Plan of Care Note [code = 73650-4] Goal Plan of Care Note [code = 61509-3] Goal Plan of Care Note [code = 24143-4] Goal Plan of Care Note [code = 40396-1] Goal Plan of Care Note [code = 81970-2] Goal Plan of Care Note [code = 10829-6] Goal Plan of Care Note [code = 10905-4] Goal Plan of Care Note [code = 36037-5] Goal Plan of Care Note [code = 97140-5] Goal Plan of Care Note [code = 13251-4] Goal Plan of Care Note [code = 11483-4] Goal Plan of Care Note [code = 04303-7] Goal Plan of Care Note [code = 54869-4] Goal Plan of Care Note [code = 90706-5] Goal Plan of Care Note [code = 83973-1] Goal Plan of Care Note [code = 91170-8] Goal Plan of Care Note [code = 31968-8] Goal Plan of Care Note [code = 04248-7] Goal Plan of Care Note [code = 12472-6] Goal Plan of Care Note [code = 92385-3] Goal Plan of Care Note [code = 69126-4] Goal Plan of Care Note [code = 83940-5] Goal Plan of Care Note [code = 71172-0] Goal Plan of Care Note [code = 15099-8] Goal Plan of Care Note [code = 18059-3] Goal Plan of Care Note [code = 68300-8] Goal Plan of Care Note [code = 26972-9] Goal Plan of Care Note [code = 20973-4] Goal Plan of Care Note [code = 16011-6] Goal Plan of Care Note [code = 39507-8] Goal Plan of Care Note [code = 33229-6] Goal Plan of Care Note [code = 91532-6] Goal Plan of Care Note [code = 86824-3] Goal Plan of Care Note [code = 14961-7] Goal Plan of Care Note [code = 83695-5] Goal Plan of Care Note [code = 40769-9] Goal Plan of Care Note [code = 36680-9] Goal Plan of Care Note [code = 40817-4] Goal Plan of Care Note [code = 35335-5] Goal Plan of Care Note [code = 98673-7] Goal Plan of Care Note [code = 73885-6] Goal Plan of Care Note [code = 11921-6] Encounters Start Date/Time End Date/Time Encounter Type Admission Type Attending Clinicians Care Facility Care Department Encounter ID Source 2023-05-10 08:42:01 Outpatient Read, [facility] [id number] [facility] 2023-04-29 09:55:02 Outpatient Read, [facility] [id number] [facility] 2022-03-26 13:44:01 [facility] [id number] [facility] 2022-02-07 06:46:00 Outpatient Read, [facility] [id number] [facility] 2022-01-05 14:57:03 Outpatient Read, [facility] [id number] [facility] 2021-12-25 14:28:02 [facility] [id number] [facility] 2021-12-20 14:26:16 [facility] [id number] [facility] 2021-12-20 14:11:53 Outpatient Read, [facility] [id number] [facility] 2021-12-20 14:04:09 [facility] [id number] [facility] 2025-02-24 14:00:00 2025-02-24 14:00:00 Outpatient DAVID CASTANEDA [id number] Korin Maria 2018-04-14 00:00:00 2025-01-09 03:18:17 Orders Only Iraj, Moregianni Galo, More [facility] [id number] [facility] 2024-12-24 09:00:00 2024-12-24 09:00:00 Outpatient [facility]EREYDA GOFF [id number] [facility] 08:15:00 2024-12-24 08:15:00 Outpatient TREY READ KORIN [id number] [facility] 2024-12-23 14:00:00 2024-12-23 14:00:00 Outpatient DAVID CASTANEDA [facility] [id number] [facility] 2024-12-07 14:00:00 2024-12-07 14:00:00 Outpatient FERNANDO CLAROS KORIN [id number] [facility] 2024-11-12 15:45:00 2024-11-12 15:45:00 Outpatient NEREYDA GOFF KORIN [id number] [facility] 2024-11-12 14:15:00 2024-11-12 14:15:00 Outpatient SAMY ANTONY KORIN KORIN [id number] [facility] 2024-09-25 15:44:46 2024-09-25 15:44:46 Outpatient SFA SFA [id number] Werner Macias Jose 2024-09-15 16:45:11 2024-09-15 16:45:11 Outpatient SFA SFA [id number] Werner Macias Jose 2024-09-15 00:00:00 2024-09-15 00:00:00 Outpatient Visit SFA [id number] Werner Macias Jose 2024-07-14 12:00:00 2024-07-14 12:00:00 Outpatient NEREYDA GOFF KORIN [id number] [facility] 2024-07-14 08:30:00 2024-07-14 08:30:00 Outpatient SHAQUILLE MILLAN KORIN [id number] [facility] 2024-07-09 13:00:00 2024-07-09 13:00:00 Outpatient NEREYDA GOFF KORIN [id number] [facility] 2024-07-07 12:00:00 2024-07-07 12:00:00 Outpatient NEREYDA GOFFVIVEK CROUCH [id number] [facility] 2024-07-07 08:15:00 2024-07-07 08:15:00 Outpatient NEREYDA GOFF KORIN CROU[facility] [id number] [facility] 2024-07-04 12:00:00 2024-07-04 12:00:00 Outpatient JORDY DRUMMOND KORIN CROUCH [id number] [facility] 2024-07-01 15:30:00 2024-07-01 15:30:00 Outpatient NEREYDA GOFF KORIN CROUCH [id number] [facility] 2024-07-01 11:30:00 2024-07-01 11:30:00 Outpatient NT90 KORIN CROUCH [id number] [facility] 2024-06-08 00:00:00 2024-06-08 00:00:00 Outpatient RONY FIGUEREDO KORIN CROUCH [id number] [facility] 2024-06-02 11:15:00 2024-06-02 11:15:00 Outpatient MITCH AGUILAR KORIN CROUCH [id number] [facility] 2024-05-21 12:45:00 2024-05-21 12:45:00 Outpatient BÁRBARA CORONA KORIN CROUCH [id number] [facility] 2024-04-28 16:45:00 2024-04-28 16:45:00 Outpatient PIEDADRONY CASTELLANOS KORIN CROUCH [id number] [facility] 2024-04-28 16:45:00 2024-04-28 16:45:00 Outpatient NEREYDA GOFF KORIN CROUCH [id number] [facility] 2024-03-31 10:00:00 2024-03-31 10:00:00 Outpatient CHRIS FONTENOT [id number] [facility] 2024-03-30 00:00:00 2024-03-30 00:00:00 Outpatient DIPIKA ALMAGUER [id number] [facility] 2024-03-27 00:00:00 2024-03-27 00:00:00 Outpatient LYDIA ESTRADA [id number] [facility] 2024-03-26 15:00:00 2024-03-26 15:00:00 Outpatient SANDRINE FRANKLIN KORIN CROUCH [id number] [facility] 2024-03-24 15:35:00 2024-03-24 15:35:00 Outpatient LAB45 KORIN CROUCH [id number] [facility] 2024-03-24 13:30:00 2024-03-24 13:30:00 Outpatient KORIN CROUCH [id number] [facility] 2024-03-24 11:40:00 2024-03-24 11:40:00 Outpatient LAB90 KORIN CROUCH [id number] [facility] 2024-03-24 00:00:00 2024-03-24 00:00:00 Outpatient DIPIKA ALMAGUER [id number] [facility] 2024-03-23 15:00:00 2024-03-23 15:00:00 Outpatient LAB90 KORIN CROUCH [id number] [facility] 2024-03-23 14:30:00 2024-03-23 14:30:00 Outpatient DIPIKA ALMAGUER [id number] [facility] 2024-02-27 00:00:00 2024-02-27 00:00:00 Outpatient CHRIS FONTENOT [id number] [facility] 2024-01-24 08:45:00 2024-01-24 08:45:00 Outpatient FERNANDO CLAROS [id number] [facility] 2024-01-24 00:00:00 2024-01-24 00:00:00 Outpatient FERNANDO CLAROS [id number] [facility] 2024-01-10 13:00:00 2024-01-10 13:00:00 Outpatient JARRELL RAMOS [id number] [facility] 2024-01-03 12:45:00 2024-01-03 12:45:00 Outpatient NEREYDA GOFF [id number] [facility] 2024-01-03 09:30:00 2024-01-03 09:30:00 Outpatient SHAQUILLE MILLAN [id number] Korin Maria 2024-01-01 09:50:00 2024-01-01 09:50:00 Outpatient LAB90 KORIN CROUCH [id number] Korin Maria 2024-01-01 09:00:00 2024-01-01 09:00:00 Outpatient CHRIS FONTENOT KORIN [id number] [facility]23-09-22 00:00:00 2023-09-22 00:00:00 Outpatient [id number] PRIV [facility] [id number] [facility] 2023-09-17 14:01:48 2023-09-17 14:01:48 Outpatient SFA SFA [id number] Werner Macias Jose 2023-08-10 11:53:47 2023-08-10 11:53:47 Outpatient SFA SFA [id number] Werner Macias Roxton 2023-08-09 09:53:04 2023-08-09 09:53:04 Outpatient SFA SFA [id number] Werner Macias Roxton 2023-08-08 11:42:27 2023-08-08 11:42:27 Outpatient SFA SFA [id number] 0914 Werner Macias Roxton 2023-08-07 09:54:21 2023-08-07 09:54:21 Outpatient SFA SFA [id number] 0913 Werner Macias Jose 2023-08-01 09:17:07 2023-08-01 09:17:07 Outpatient SFA SFA [id number] Werner Macias Roxton 2023-07-31 16:59:43 2023-07-31 16:59:43 Outpatient SFA SFA [id number] Werner Macias Roxton 2023-07-10 10:00:00 2023-07-10 10:00:00 Outpatient [facility] [id number] [facility] 2023-04-30 11:15:00 2023-04-30 11:30:00 Blurb Writer Visit Pob, Adc Lab Main Alma Duenas [facility] [id number] 350.1.13.10 [id number] [id number] [facility] 2023-04-30 11:15:00 2023-04-30 11:15:00 Outpatient ALMA [facility] [id number] [facility] 2023-04-30 00:00:00 2023-04-30 00:00:00 Orders Only Doctor Unassigned, Rake [facility] [id number] 350.1.13.10 4.2.7.2.686 [id number] [facility] 2023-04-29 00:00:00 2023-04-29 00:00:00 (TEL) STLMLC STLMLC [id number] [facility] 2022-11-07 14:47:48 2022-11-07 14:47:48 Outpatient SFA [facility] [id number] Werner Garcia 2022-11-06 09:31:48 2022-11-06 09:31:48 Outpatient SFA ZULMA [id number] Werner Colleen Jose 2022-11-06 00:00:00 2022-11-06 00:00:00 Outpatient Visit [id number] 2022-10-29 09:59:14 2022-10-29 09:59:14 Outpatient SFA ZULMA [id number] Werner Garcia 2022-10-26 14:01:01 2022-10-26 14:01:01 Outpatient ZULMA MAYA [id number] 1202 Werner Garcia 2022-09-07 00:00:00 2022-09-07 00:00:00 Outpatient R RADIOLOGY [facility] [id number] [facility] 2022-09-04 13:48:21 2022-09-04 13:48:21 Outpatient SFA ZULMA [id number] Werner Garcia 2022-09-04 00:00:00 2022-09-04 00:00:00 Outpatient Visit [id number] 2022-07-09 00:00:00 2022-07-09 00:00:00 (TEL) STLMLC STLMLC [id number] [facility] 2022-06-26 00:00:00 2022-06-26 00:00:00 OFFICE VISIT ESTAB PT LEVEL 4 STLMLC STLMLC [id number] [facility] 2022-06-22 00:00:00 2022-06-22 00:00:00 (TEL) STLMLC STLMLC [id number] [facility] 2022-06-18 00:00:00 2022-06-18 00:00:00 (TEL) STLMLC STLMLC [id number] [facility] 2022-06-14 00:00:00 2022-06-14 00:00:00 Outpatient Visit [id number] 2022-04-26 00:00:00 2022-04-26 00:00:00 (TEL) STLMLC STLMLC [id number] [facility] 2022-03-26 00:00:00 2022-03-26 00:00:00 OFFICE VISIT EST PT LEVEL 3 STLMLC STLMLC [id number] [facility] 2022-03-26 00:00:00 2022-03-26 00:00:00 (TEL) STLMLC STLMLC [id number] [facility] 2022-01-05 00:00:00 2022-01-05 00:00:00 OFFICE VISIT ESTAB PT LEVEL 3 STLMLC STLMLC [id number] [facility] 2022-01-02 00:00:00 2022-01-02 00:00:00 (TEL) STLMLC STLMLC [id number] [facility] 2021-12-25 00:00:00 2021-12-25 00:00:00 PREV VISIT EST AGE 18-39 STLMLC STLMLC [id number] [facility] 2021-11-22 00:00:00 2021-11-22 00:00:00 (TEL) STLMLC STLMLC [id number] [facility] 2021-11-16 00:00:00 2021-11-16 00:00:00 OFFICE VISIT EST PT LEVEL 3 STLMLC STLMLC [id number] [facility] 2021-11-16 00:00:00 2021-11-16 00:00:00 (TEL) STLMLC STLMLC [id number] [facility] 2021-11-13 00:00:00 2021-11-13 00:00:00 OFFICE VISIT EST PT LEVEL 3 STLMLC STLMLC [id number] [facility] 2021-11-12 15:44:00 2021-11-12 21:16:00 Emergency E SUE SORTO [facility]BL MHBL 7500 [facility] 2021-10-31 00:00:00 2021-10-31 00:00:00 (TEL) STLMLC STLMLC [id number] [facility] 2021-10-05 00:00:00 2021-10-05 00:00:00 OFFICE VISIT ESTAB PT LEVEL 2 STLMLC STLMLC [id number] [facility] 2021-07-27 00:00:00 2021-07-27 00:00:00 PREV VISIT NEW AGE 18-39 STLMLC STLMLC [id number] [facility] 2021-07-27 00:00:00 2021-07-27 00:00:00 (TEL) STLMLC STLMLC [id number] [facility] 2021-07-24 20:40:00 2021-07-24 20:40:00 Outpatient [facility] [id number] [facility] 2019-06-29 00:00:00 2019-06-29 00:00:00 Orders Only Doctor Unassigned, Rake [facility] [id number] 350.1.13.10 4.2.7.2.686 [id number] 2019-06-29 00:00:00 2019-06-29 00:00:00 Orders Only Doctor Unassigned, Rake [facility] [id number] 350.1.13.10 4.2.7.2.686 [id number] [facility] Results Test Description Test Time Test Comments Results Result Co mments Source Werner GarciaARNULFOH, THIRD [id number] 00:00:00* Test Item Value Reference Range Interpretation Comme nts TSH, THIRD GENERATION (test code = 2821) 2.210 UIU/ML Werner Macias JoseCT/NG, NAAT, [id number] 21:53:33* Test Item Value Reference Range Interpretation Comme nts GONORRHEA, NAAT (test code = 97903) NEGATIVE NEGATIVE Note: Testin g is performed with Petrona YNES 6800/8800 systems using real-time polymerase chain reaction (PCR) method. CHLAMYDIA, NAAT (test code = 66734) NEGATIVE NEGATIVE Note: Testin g is performed with [employer]ron[employer] YNES 6800/8800 systems using real-time polymerase chain reaction (PCR) method. HIV 1/2 4TH GEN, RFLX [id number] 05:58:55* Test Item Value Reference Range Interpretation Comme nts HIV 1/2 4TH GEN, RFLX CONF ( test code = 3514) NON-REACTIVE NON-REACTIVE HEPATITIS PANEL, [id number] 05:58:55* Test Item Value Reference Range Interpretation Comme nts HEPATITIS A IgM (test code = 91157) NON-REACTIVE NON-REACTIVE HEPATITIS B CORE IgM (test code = 4644) NON-REACTIVE NON-REACTIVE HEPATITIS B SURF AG (test code = 2739) NON-REACTIVE NON-REACTIVE HEPATITIS C ANTIBODY (test code = 4675) NON-REACTIVE NON-REACTIVE INTERPRETATION HEPATITIS A: (test code = 2552) (NOTE) Hepatitis A sero logy shows no evidence of acute hepatitis A. INTERPRETATION HEPATITIS B: (test code = 76591) (NOTE) Hepatitis B sero logy shows no evidence of acute hepatitis B andno indication of exposure to hepatitis B virus in the previous vito eight months. INTERPRETATION HEPATITIS C: (test code = 94941) (NOTE) Hepatitis C sero logy shows no evidence of exposure to hepatitisC virus at this time. It can take up to 12 months after exposure tothe hepatitis C virus for antibodies to become detectable in the blood in certain patients. UNLESS OTHERWISE INDICATED, ALL TESTING PERFORMED [facility] [employer] [address] [place] [address] LEAD HOUSEKEEPER: YOSEPH BRYANT M.D. [place] NUMBER [id number] [facility]. [id number] RPR REFLEX TO T. PALLIDUM - [id number] 04:29:20* Test Item Value Reference Range Interpretation Comme nts RPR (test code = 20979) NON-REACTIVE NON-REACTIVE RPR TITER (test code = 3500) NOT INDIC. TITER NOT INDIC. HIV AB/AG COMBO RFLX [id number] 00:00:00* Test Item Value Reference Range Interpretation Comme nts HIV 1/2 4TH GEN, RFLX CONF ( test code = 3514) NON-REACTIVE Werner GarciaCT/NG, TMA, [id number] 00:00:00* Test Item Value Reference Range Interpretation Comme nts GONORRHEA, NAAT (test code = 73276) NEGATIVE CHLAMYDIA, NAAT (test code = 14067) NEGATIVE Werner GarciaRPR REFLEX TO T. PALLIDUM - [id number] 00:00:00* Test Item Value Reference Range Interpretation Comme nts RPR (test code = 00196) NON-REACTIVE RPR TITER (test code = 3500) NOT INDIC. TITER Werner Colleen JoseACUTE HEPATITIS [id number] 00:00:00* Test Item Value Reference Range Interpretation Comme nts HEPATITIS A IgM (test code = 31726) NON-REACTIVE HEPATITIS B CORE IgM (test c ode = 4644) NON-REACTIVE HEPATITIS B SURF AG (test co de = 8249) NON-REACTIVE HEPATITIS C ANTIBODY (test c ode = 4675) NON-REACTIVE INTERPRETATION HEPATITIS A: (test code = 2552) (NOTE) INTERPRETATION HEPATITIS B: (test code = 33729) (NOTE) INTERPRETATION HEPATITIS C: (test code = 31064) (NOTE) Werner Welch, [id number] 15:17:43SPECIMEN NUMBER: [id number] CULTURE, URINE SPECIMEN NUMBER: [id number] SPECIMEN COMMENT: URINE SOURCE: URINE REPORT STATUS: FINAL ISOLATE NUMBER 1: ORGANISM: 09/06/2022 >100,000 CFU/ML GRAM NEGATIVEBACILLI IDENTIFICATION: 09/07/2022 ESCHERICHIA COLI E. COLI AMOXICILLIN/CA SENSITIVE <=8/4AMPICILLIN RESISTANT >16CEFAZOLIN SENSITIVE 4CEFTRIAXONE SENSITIVE <=1CIPROFLOXACIN SENSITIVE <=1LEVOFLOXACIN SENSITIVE <=2NITROFURANTOIN SENSITIVE <=32PIP/TAZOBAC SENSITIVE &l t;=16TETRACYCLINE SENSITIVE <=4TOBRAMYCIN SENSITIVE <=4TRIMETH/SULFA SENSITIVE <=2/38 NOTE: NUMBERS DISPLAYED REPRESENT MINIMUM INHIBITORY CONCENTRATION (MANNY) WHICH IS EXPRESSED IN MCG/ML. UNLESS OTHERWISE INDICATED, ALL TESTING PERFORMED [facility] [address] [place] [address] LEAD HOUSEKEEPER: YOSEPH BRYANT M.D. [place] NUMBER [id number] [facility]. [id number], [id number] 00:00:00* Test Item Value Reference Range Interpretation Comme nts CULTURE, URINE (test code = 54770) SPECIMEN NUMBER: [id number] Werner Welch, [id number] 00:00:00* Test Item Value Reference Range Interpretation Comme nts CULTURE, URINE (test code = 12722) SPECIMEN NUMBER: [id number] CULTURE, [id number] 00:00:00* Test Item Value Reference Range Interpretation Comme nts CULTURE, URINE (test code = 97989) SPECIMEN NUMBER: [id number] Lipid Panel With LDL/HDL [id number] 00:00:00* Test Item Value Reference Range Interpretation Comme nts Cholesterol, Total (test code = 2093-3) 159 mg/dL See_Comment [Automated message] The system which generated this result transmitted reference range: 100-199 mg/dL. The reference range was not used to interpret this result as normal/abnormal. HDL Cholesterol (test code = 2085-9) 39 mg/dL See_Comment L [Automated [employer]] The system which generated this result transmitted reference range: >39 mg/dL. The reference range was not used to interpret this result as normal/abnormal. Triglycerides (test code = 2571-8) 140 mg/dL See_Comment [Automated [employer]] The system which generated this result transmitted reference range: 0-149 mg/dL. The reference range was not used to interpret this result as normal/abnormal. [id number] 00:00:00* Test Item Value Reference Range Interpretation Comme nts RPR RESULT (test code = 3501) NON-REACTIVE RPR TITER (test code = 3500) NOT INDIC. TITER Werner Macias [facility]VAGINAL PATHOGENS DNA [id number] 00:00:00* Test Item Value Reference Range Interpretation Comme nts TRU SPECIES (test code = 73076) NEGATIVE G. VAGINALIS (test code = 02608) NEGATIVE T. VAGINALIS (test code = 21980) NEGATIVE Werner F AustinVAGINAL PATHOGENS DNA [id number] 00:00:00* Test Item Value Reference Range Interpretation Comme nts TRU SPECIES (test code = 23126) NEGATIVE G. VAGINALIS (test code = 74305) NEGATIVE T. VAGINALIS (test code = 11520) NEGATIVE GC AND CHLAMYDIA, AMPLIFIED, [id number] 00:00:00* Test Item Value Reference Range Interpretation Comme nts GONORRHEA, NAAT (test code = 25174) NEGATIVE CHLAMYDIA, NAAT (test code = 55556) NEGATIVE HIV AB/AG COMBO RFLX [id number] 00:00:00* Test Item Value Reference Range Interpretation Comme nts HIV 1/2 4TH GEN, RFLX CONF ( test code = 3514) NON-REACTIVE [id number] 00:00:00* Test Item Value Reference Range Interpretation Comme nts RPR RESULT (test code = 3501) NON-REACTIVE RPR TITER (test code = 3500) NOT INDIC. TITER VAGINAL PATHOGENS DNA [id number] 00:00:00* Test Item Value Reference Range Interpretation Comme nts TRU SPECIES (test code = ) NEGATIVE G. VAGINALIS (test code = 76761) NEGATIVE T. VAGINALIS (test code = ) NEGATIVE VAGINAL PATHOGENS DNA [id number] 00:00:00* Test Item Value Reference Range Interpretation Comme nts TRU SPECIES (test code = ) NEGATIVE G. VAGINALIS (test code = 78217) NEGATIVE T. VAGINALIS (test code = 92033) NEGATIVE GC AND CHLAMYDIA, AMPLIFIED, [id number] 00:00:00* Test Item Value Reference Range Interpretation Comme nts GONORRHEA, NAAT (test code = 76189) NEGATIVE CHLAMYDIA, NAAT (test code = 47685) NEGATIVE Werner F AustinGC AND CHLAMYDIA, AMPLIFIED, [id number] 00:00:00* Test Item Value Reference Range Interpretation Comme nts GONORRHEA, NAAT (test code = 04636) NEGATIVE CHLAMYDIA, NAAT (test code = 35162) NEGATIVE HIV AB/AG COMBO RFLX [id number] 00:00:00* Test Item Value Reference Range Interpretation Comme nts HIV 1/2 4TH GEN, RFLX CONF ( test code = 3514) NON-REACTIVE [id number] 00:00:00* Test Item Value Reference Range Interpretation Comme nts RPR RESULT (test code = 3501) NON-REACTIVE RPR TITER (test code = 3500) NOT INDIC. TITER GC AND CHLAMYDIA, AMPLIFIED, [id number] 00:00:00* Test Item Value Reference Range Interpretation Comme nts GONORRHEA, NAAT (test code = 82748) NEGATIVE CHLAMYDIA, NAAT (test code = 86122) NEGATIVE HIV AB/AG COMBO RFLX [id number] 00:00:00* Test Item Value Reference Range Interpretation Comme nts HIV 1/2 4TH GEN, RFLX CONF ( test code = 3514) NON-REACTIVE [id number] 00:00:00* Test Item Value Reference Range Interpretation Comme nts RPR RESULT (test code = 3501) NON-REACTIVE RPR TITER (test code = 3500) NOT INDIC. TITER HIV AB/AG COMBO RFLX [id number] 00:00:00* Test Item Value Reference Range Interpretation Comme nts HIV 1/2 4TH GEN, RFLX CONF ( test code = 3514) NON-REACTIVE Werner F AustinGC AND CHLAMYDIA, AMPLIFIED, [id number] 00:00:00* Test Item Value Reference Range Interpretation Comme nts GONORRHEA, NAAT (test code = 19560) NEGATIVE CHLAMYDIA, NAAT (test code = 47285) NEGATIVE GC AND CHLAMYDIA, AMPLIFIED, [id number] 00:00:00* Test Item Value Reference Range Interpretation Comme nts GONORRHEA, NAAT (test code = 39568) NEGATIVE CHLAMYDIA, NAAT (test code = 50790) NEGATIVE GC AND CHLAMYDIA, AMPLIFIED, [id number] 00:00:00* Test Item Value Reference Range Interpretation Comme nts GONORRHEA, NAAT (test code = 22149) NEGATIVE CHLAMYDIA, NAAT (test code = 20783) NEGATIVE GC AND CHLAMYDIA, AMPLIFIED, [id number] 00:00:00* Test Item Value Reference Range Interpretation Comme nts GONORRHEA, NAAT (test code = 34329) NEGATIVE CHLAMYDIA, NAAT (test code = 66541) NEGATIVE Werner [id number] 00:00:00* Test Item Value Reference Range Interpretation Comme nts RPR RESULT (test code = 3501) NON-REACTIVE RPR TITER (test code = 3500) NOT INDIC. TITER Werner GarciaVAGINAL PATHOGENS DNA [id number] 00:00:00* Test Item Value Reference Range Interpretation Comme nts TRU SPECIES (test code = 73137) NEGATIVE G. VAGINALIS (test code = 16172) NEGATIVE T. VAGINALIS (test code = 75401) NEGATIVE Werner GarciaHIV AB/AG COMBO RFLX [id number] 00:00:00* Test Item Value Reference Range Interpretation Comme nts HIV 1/2 4TH GEN, RFLX CONF ( test code = 3514) NON-REACTIVE Werner GarciaPAP TEST, THINPREP, [id number] 00:00:00* Test Item Value Reference Range Interpretation Comme nts SOURCE: (test code = 8001) Cervical/Endocervical SLIDES: (test code = 8011) 1 LMP: (test code = 8021) 10/10/2020 SPECIMEN ADEQUACY: (test code = 83049) (NOTE) INTERPRETATION: (test code = 52548) NILM/NO EPITH. ABNORMALITY;SEE BELOW FLORAL DESIGN TEACHER: (test code = 8101) Marce BarlowCT(ASCP)IAC LOCATION: (test code = 51686) (NOTE) CPT: (test code = 8140) (NOTE) Werner GarciaHPV HIGH RISK WITH GENOTYPE, [id number] 00:00:00* Test Item Value Reference Range Interpretation Comme nts HPV HIGH RISK INTERP (test c ode = 41863) NEGATIVE HPV 16 (test code = 83077) NEGATIVE HPV 18 (test code = 53847) NEGATIVE HPV, HR, OTHER GENOTYPES (te st code = 56373) NEGATIVE Werner GarciaACUTE HEPATITIS [id number] 00:00:00* Test Item Value Reference Range Interpretation Comme nts HEPATITIS A IgM (test code = 42586) NON-REACTIVE HEPATITIS B CORE IgM (test c ode = 4644) NON-REACTIVE HEPATITIS B SURF AG (test co de = 2739) NON-REACTIVE HEPATITIS C ANTIBODY (test c ode = 4675) NON-REACTIVE INTERPRETATION HEPATITIS A: (test code = 2552) (NOTE) INTERPRETATION HEPATITIS B: (test code = 92907) (NOTE) INTERPRETATION HEPATITIS C: (test code = 64221) (NOTE) Werner GarciaHIV AB/AG COMBO RFLX [id number] 00:00:00* Test Item Value Reference Range Interpretation Comme nts HIV 1/2 4TH GEN, RFLX CONF ( test code = 3514) NON-REACTIVE PAP TEST, THINPREP, [id number] 00:00:00* Test Item Value Reference Range Interpretation Comme nts SOURCE: (test code = 8001) Cervical/Endocervical SLIDES: (test code = 8011) 1 LMP: (test code = 8021) 10/10/2020 SPECIMEN ADEQUACY: (test code = 17985) (NOTE) INTERPRETATION: (test code = 18233) NILM/NO EPITH. ABNORMALITY;SEE BELOW FLORAL DESIGN TEACHER: (test code = 8101) TELLY Zheng(ASCP)IAC LOCATION: (test code = 05923) (NOTE) CPT: (test code = 8140) (NOTE) HPV HIGH RISK WITH GENOTYPE, [id number] 00:00:00* Test Item Value Reference Range Interpretation Comme nts HPV HIGH RISK INTERP (test c ode = 55154) NEGATIVE HPV 16 (test code = 72288) NEGATIVE HPV 18 (test code = 53008) NEGATIVE HPV, HR, OTHER GENOTYPES (te st code = 27819) NEGATIVE ACUTE HEPATITIS [id number] 00:00:00* Test Item Value Reference Range Interpretation Comme nts HEPATITIS A IgM (test code = 91376) NON-REACTIVE HEPATITIS B CORE IgM (test c ode = 4644) NON-REACTIVE HEPATITIS B SURF AG (test co de = 2739) NON-REACTIVE HEPATITIS C ANTIBODY (test c ode = 4675) NON-REACTIVE INTERPRETATION HEPATITIS A: (test code = 2552) (NOTE) INTERPRETATION HEPATITIS B: (test code = 83580) (NOTE) INTERPRETATION HEPATITIS C: (test code = 74528) (NOTE) [id number] 00:00:00* Test Item Value Reference Range Interpretation Comme nts RPR RESULT (test code = 3501) NON-REACTIVE RPR TITER (test code = 3500) NOT INDIC. TITER VAGINAL PATHOGENS DNA [id number] 00:00:00* Test Item Value Reference Range Interpretation Comme nts TRU SPECIES (test code = 02615) NEGATIVE G. VAGINALIS (test code = 88134) NEGATIVE T. VAGINALIS (test code = 85808) NEGATIVE HIV AB/AG COMBO RFLX [id number] 00:00:00* Test Item Value Reference Range Interpretation Comme [facility] HIV 1/2 4TH GEN, RFLX CONF ( test code = 3514) NON-REACTIVE PAP TEST, THINPREP, [id number] 00:00:00* Test Item Value Reference Range Interpretation Comme nts SOURCE: (test code = 8001) Cervical/Endocervical SLIDES: (test code = 8011) 1 LMP: (test code = 8021) 10/10/2020 SPECIMEN ADEQUACY: (test code = 84553) (NOTE) INTERPRETATION: (test code = 83254) NILM/NO EPITH. ABNORMALITY;SEE BELOW FLORAL DESIGN TEACHER: (test code = 8101) TELLY Zheng(ASCP)IAC LOCATION: (test code = 36430) (NOTE) CPT: (test code = 8140) (NOTE) HIV AB/AG COMBO RFLX [id number] 00:00:00* Test Item Value Reference Range Interpretation Comme nts HIV 1/2 4TH GEN, RFLX CONF ( test code = 3514) NON-REACTIVE PAP TEST, THINPREP, [id number] 00:00:00* Test Item Value Reference Range Interpretation Comme nts SOURCE: (test code = 8001) Cervical/Endocervical SLIDES: (test code = 8011) 1 LMP: (test code = 8021) 10/10/2020 SPECIMEN ADEQUACY: (test code = 49549) (NOTE) INTERPRETATION: (test code = 08598) NILM/NO EPITH. ABNORMALITY;SEE BELOW FLORAL DESIGN TEACHER: (test code = 8101) TELLY Zheng(ASCP)IAC LOCATION: (test code = 84842) (NOTE) CPT: (test code = 8140) (NOTE) ACUTE HEPATITIS [id number] 00:00:00* Test Item Value Reference Range Interpretation Comme nts HEPATITIS A IgM (test code = 47150) NON-REACTIVE HEPATITIS B CORE IgM (test c ode = 4644) NON-REACTIVE HEPATITIS B SURF AG (test co de = 2739) NON-REACTIVE HEPATITIS C ANTIBODY (test c ode = 4675) NON-REACTIVE INTERPRETATION HEPATITIS A: (test code = 2552) (NOTE) INTERPRETATION HEPATITIS B: (test code = 79098) (NOTE) INTERPRETATION HEPATITIS C: (test code = 02757) (NOTE) HPV HIGH RISK WITH GENOTYPE, [id number] 00:00:00* Test Item Value Reference Range Interpretation Comme nts HPV HIGH RISK INTERP (test c ode = 29534) NEGATIVE HPV 16 (test code = 44850) NEGATIVE HPV 18 (test code = 75300) NEGATIVE HPV, HR, OTHER GENOTYPES (te st code = 83639) NEGATIVE [id number] 00:00:00* Test Item Value Reference Range Interpretation Comme nts RPR RESULT (test code = 3501) NON-REACTIVE RPR TITER (test code = 3500) NOT INDIC. TITER VAGINAL PATHOGENS DNA [id number] 00:00:00* Test Item Value Reference Range Interpretation Comme nts TRU SPECIES (test code = 05213) NEGATIVE G. VAGINALIS (test code = 29007) NEGATIVE T. VAGINALIS (test code = 97525) NEGATIVE HPV HIGH RISK WITH GENOTYPE, [id number] 00:00:00* Test Item Value Reference Range Interpretation Comme nts HPV HIGH RISK INTERP (test c ode = 60006) NEGATIVE HPV 16 (test code = 23141) NEGATIVE HPV 18 (test code = 15732) NEGATIVE HPV, HR, OTHER GENOTYPES (te st code = 31036) NEGATIVE ACUTE HEPATITIS [id number] 00:00:00* Test Item Value Reference Range Interpretation Comme nts HEPATITIS A IgM (test code = 09805) NON-REACTIVE HEPATITIS B CORE IgM (test c ode = 4644) NON-REACTIVE HEPATITIS B SURF AG (test co de = 2739) NON-REACTIVE HEPATITIS C ANTIBODY (test c ode = 4675) NON-REACTIVE INTERPRETATION HEPATITIS A: (test code = 2552) (NOTE) INTERPRETATION HEPATITIS B: (test code = 78213) (NOTE) INTERPRETATION HEPATITIS C: (test code = 94595) (NOTE) [id number] 00:00:00* Test Item Value Reference Range Interpretation Comme nts RPR RESULT (test code = 3501) NON-REACTIVE RPR TITER (test code = 3500) NOT INDIC. TITER VAGINAL PATHOGENS DNA [id number] 00:00:00* Test Item Value Reference Range Interpretation Comme nts TRU SPECIES (test code = 45297) NEGATIVE G. VAGINALIS (test code = 07510) NEGATIVE T. VAGINALIS (test code = 40234) NEGATIVE Notes Date/Time Note Provider Source Werner Zambrano [facility]2024-02-07 08:36:41 Chief Complaint Patient presents with Establish Care Patient has previously seen Dr. Read as PCP. Last annual Nov 2022. Nicotine Dependence She would like to discuss something to help with smoking. Marcia Feng MA II [facility]
[2025-01-25] MEDS ORDERED: ONDANSETRON 4 MG/2 ML VIAL ONE (01:50)
[2025-01-25] MEDS ORDERED: MORPHINE 4 MG/ML SYR ONE (01:50)
[2025-01-25 01:57] LABS: Absolute Eosinophils 0.1 K/uL (0-0.5); Absolute Lymphocytes (CBC) 1.6 K/uL (0.7-4.9); Absolute Monocytes 0.4 K/uL (0.1-1.3); Absolute Neutrophil 4.2 K/uL (1.8-8.0); Basophils % 0.4 % (0-1.3); Eosinophils % 1.3 % (0-4.4); Hematocrit 37.9 % (36.0-45.0); Hemoglobin 12.9 g/dL (12.0-15.0); Lymphocytes % 24.9 % (15.3-44.8); MCH 29.6 pg (27.0-35.0); MCHC 34.1 g/dL (32.0-36.0); MCV 86.7 fL (80-100); Monocytes % 6.3 % (3.3-12.3); Neutrophils % 67.1 % (41.7-73.7); Nucleated Red Blood Cells % 0.2 % (0-0); Platelets 239 thou/uL (152-406); RBC Red Blood Cell Count 4.37 M/uL (3.86-4.86); Red Cell Distribution Width 14.7 % (12.1-15.2)
[2025-01-25 02:07] LABS: Anion Gap 7.4 mEq/L (5.0-15.0); Potassium 3.4 mEq/L (3.5-5.1)
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
[2025-01-25 03:10] VITALS: O2SAT 100
[2025-01-25 03:12] VITALS: BP 121/74; TEMP 97.4
--- NOTE | 2025-01-25 03:38 | RAD REPORT ---
EXAM DESCRIPTION: Head C Spine Mpr Wo Con CLINICAL HISTORY: 29 years Female, TRAUMA TECHNIQUE: Helical CT axial images are obtained of the brain and cervical spine without IV contrast. Multiplanar reconstruction. This exam was performed according to our departmental dose-optimization program, which includes automated exposure control, adjustment of the mA and/or kV according to patie nt size and/or use of iterative reconstruction technique. COMPARISON: None. FINDINGS: BRAIN: BRAIN: No infarcts. No parenchymal hemorrhage, intra-axial mass, mass effect, or midline shift. No ab normal extra-axial fluid collections. VENTRICLES: Ventricles are normal in size and configuration. No hydrocephalus. CALVARIUM: Bone windows show no skull fracture or calvarial lesions.] PARANASAL SINUSES AND MASTOIDS: Clear paranasal sinuses. Mastoid air cells are clear. CERVICAL SPINE: VERTEBRA: Cervical spine is in normal anatomic alignment. No acute fracture or subluxation. Cervical vertebra are normal in height. Craniocervical junction is intact. Normal vertebral body morphology. DISCS: Intervertebral discs are well-preserved. LEVELS: From the C2-C3 through the C7-T1 levels, no canal or foraminal stenosis. SOFT TISSUES: Paravertebral soft tissues are unremarkable. IMPRESSION: 1. Negative noncontrast CT examination brain. 2. No acute fracture or CT evidence of traumatic injury to cervical spine. Negative examination. Electronically signed by: Manish Francisco MD 01/25/2025 02:07 AM [facility] N Due to temporary technical issues with the PACS/[employer] reporting system, reports are being donya d by the in-house radiologist without review as a courtesy to ensure prompt reporting the interpreting radiologist is fully responsible for the content of the report. Transcribed Date/Time: 01/25/2025 3:38 AM
--- NOTE | 2025-01-25 03:39 | RAD REPORT ---
EXAM DESCRIPTION: Chest Abd Pelvis Wo Con CLINICAL HISTORY: 29 years Female, TRAUMA TECHNIQUE: Helical CT axial images are obtained from the thoracic inlet to the pubic symphysis withou t IV contrast. No oral contrast was administered. Multiplanar reconstruction. This exam was performed according to our departmental dose-optimization program, which includes automated exposure control, adjustment of the mA and/or kV according to patient size and/or use of iterative reconstruction technique. COMPARISON: CT abdomen pelvis 09/04/2022 FINDINGS: CHEST: LUNGS: No pulmonary contusion or consolidation. Lung parenchyma is clear. No pulmonary masses or thapa spicious nodules. MEDIASTINUM: No abnormally enlarged mediastinal or hilar lymph nodes. PLEURA: No pleural effusion. No pneumothorax. CARDIAC: Normal heart size. No pericardial effusion. VASCULAR: Thoracic aorta is normal in caliber without aneurysm. The pulmonary vasculature demonstrate s no significant dilatation. CHEST WALL: Chest wall is intact. No abnormal axillary lymphadenopathy. ABDOMEN/PELVIS: LIVER: Normal in size. Normal attenuation. No focal masses. HEPATOBILIARY: Normal-appearing gallbladder. No intra- or extrahepatic ductal dilatation. SPLEEN: Normal size. PANCREAS: Normal size and contour. No focal mass. ADRENAL GLANDS: Normal size. No adrenal masses. KIDNEYS: Bilateral kidneys are normal in size without obstructing calculi or hydronephrosis. No nep hrolithiasis. No significant cysts are present. BOWEL AND MESENTERY: No small or large bowel dilatation. No colonic diverticulosis. Normal appendix . No abnormal mesenteric lymphadenopathy. No free fluid or pneumoperitoneum. RETROPERITONEUM: ormal caliber abdominal aorta without aneurysm. No abnormal retroperitoneal lymphade nopathy. PELVIS: Urinary bladder is unremarkable. Uterus and adnexal regions are unremarkable. Tampon larry fact noted. ABDOMINAL WALL: The abdominal wall is intact. BONES: No acute fracture of the thoracolumbar spine or bony pelvis. No suspicious osseous lytic or bl astic lesions seen. IMPRESSION: 1. No acute disease or evidence for traumatic injury to chest, abdomen, or pelvis. 2. Negative examination. Electronically signed by: Manish Francisco MD 01/25/2025 02:04 AM [facility] N Due to temporary technical issues with the PACS/[employer] reporting system, reports are being donya d by the in-house radiologist without review as a courtesy to ensure prompt reporting the interpreting radiologist is fully responsible for the content of the report. Transcribed Date/Time: 01/25/2025 3:38 AM
== END 2025-01-25 03:05 | disposition home or self-care (01) ==
LOC: ER 01:08
DX: S16.1XXA Strain of muscle, fascia and tendon at neck level, initial encounter (principal); S30.811A Abrasion of abdominal wall, initial encounter; S09.90XA Unspecified injury of head, initial encounter; V49.40XA Driver injured in collision with unspecified motor vehicles in traffic accident, initial encounter
CPT/HCPCS: 36415; 70450; 71250; 72125; 74176; 80048; 85025; 86850; 86900; 86901; J2405